=== PATIENT | female | born 1940 | race Two or more races ===

== ENCOUNTER 2022-10-29 13:41 | Inpatient (IN) | payer MEDICARE, OTHER ==
[~2022-10-29] VITALS: Ht 165.1 cm; Wt 60.8 kg
--- NOTE | 2022-10-29 14:09 | NUR ---
established iv line 20g at left ac
[2022-10-29] MEDS ORDERED: IV NS 0.9% 1,000 ML BAG IV ONE (14:30)
[2022-10-29] MEDS ORDERED: ACETAMINOPHEN ES 500 MG TABLET PO ONE (14:30)
[2022-10-29] MEDS ORDERED: CEFTRIAXONE 1GM BAG (ER ONLY) 50 ML IV ONE ×2 (14:30→14:34)
[2022-10-29] MEDS ORDERED: IV NS 0.9% 500 ML BAG IV ONE (14:30)
[2022-10-29] MEDS ORDERED: ONDANSETRON HCL/PF 4 MG/2 ML VIAL IVP ONE (14:30)
[2022-10-29] MEDS ORDERED: IBUPROFEN 600 MG TABLET PO ONE (14:30)
[2022-10-29] MEDS ORDERED: ONDANSETRON HCL/PF 4 MG/2 ML VIAL ONE (14:35)
[2022-10-29] MEDS ORDERED: IBUPROFEN 600 MG TABLET ONE (14:35)
[2022-10-29] MEDS ORDERED: ACETAMINOPHEN ES 500 MG TABLET ONE (14:35)
[2022-10-29 15:21] LABS: BASOPHILS % (AUTO) 0.3 % (0.0-2.0); EOSINOPHILS % (AUTO) 1.2 % (0.0-6.0); LYMPHOCYTES # (AUTO) 0.7 K/uL (0.8-4.8); LYMPHOCYTES % (AUTO) 5.8 % (20.0-44.0); MEAN CORPUSCULAR HGB CONC 32 g/dl (31.0-36.0); MEAN CORPUSCULAR VOLUME 97 fL (82-100); MONOCYTES % (AUTO) 8.1 % (2.0-12.0); NEUTROPHILS # (AUTO) 10.8 K/uL (1.8-8.9); NEUTROPHILS % (AUTO) 84.6 % (43.0-81.0); PLATELET COUNT (AUTO) 258 K/uL (150-450); RED BLOOD CELL COUNT(AUTO) 2.04 MIL/uL (4.0-5.2); WHITE BLOOD COUNT (AUTO) 12.7 K/uL (4.3-11.0)
[2022-10-29 15:51] LABS: HEMATOCRIT 20 % (33-45); HEMOGLOBIN 6.4 g/dL (11.5-14.8)
--- NOTE | 2022-10-29 15:52 | NUR ---
SODIUM 120, BUN 114, CREATININE 8.3. DOC MADE AWARE
--- NOTE | 2022-10-29 15:56 | NUR ---
HGB 6.4, HCT 20. DOC MADE AWARE
[2022-10-29 15:57] LABS: ALANINE AMINOTRANSFERASE 22 U/L (12-78); ALBUMIN 3.3 g/dL (3.4-5.0); ALKALINE PHOSPHATASE 77 U/L (46-116); ASPARTATE AMINOTRANSFERASE 26 U/L (15-37); BILIRUBIN,DIRECT 0.1 mg/dL (0.0-0.2); BILIRUBIN,TOTAL 0.4 mg/dL (0.2-1.0); CALCIUM, SERUM 7.8 mg/dL (8.5-10.1); CARBON DIOXIDE 12 mmol/L (21-32); CHLORIDE 89 mmol/L (98-107); GLUCOSE 116 mg/dL (74-106); POTASSIUM 5.1 mmol/L (3.5-5.1); TOTAL PROTEIN, SERUM 7.4 g/dL (6.4-8.2)
[2022-10-29 16:03] LABS: CREATININE 8.3 mg/dL (0.6-1.3); SODIUM SERUM 120 mmol/L (136-145); UREA NITROGEN, BLOOD 114 mg/dL (7-18)
--- NOTE | 2022-10-29 16:38 | NUR ---
influenza and covid swab taken
--- NOTE | 2022-10-29 16:46 | NUR ---
MOVE SHEET SUBMITTED
--- NOTE | 2022-10-29 17:08 | NUR ---
[facility] PAGED
--- NOTE | 2022-10-29 17:28 | NUR ---
lanier cath placed f16
[2022-10-29] MEDS ORDERED: MAGNESIUM HYDROXIDE 30 ML UDC PO PRN (17:30)
[2022-10-29] MEDS ORDERED: MORPHINE SULFATE INJ 2 MG/ML DISP.SYRIN IV PRN (17:30)
[2022-10-29] MEDS ORDERED: ONDANSETRON HCL/PF 4 MG/2 ML VIAL IVP PRN (17:30)
--- NOTE | 2022-10-29 17:51 | NUR ---
nursing evaporator supervisor called for tele med.
[2022-10-29 18:05] LABS: ACETAMINOPHEN 0 ug/ml (10-30)
[2022-10-29 18:39] LABS: BILIRUBIN,URINE NEGATIVE (NEGATIVE); COLOR,URINE DARK YELLOW (YELLOW); LEUKOCYTE ESTERASE ,URINE 3+ (NEGATIVE); NITRITE, URINE NEGATIVE (NEGATIVE); PH,URINE 6.5 (5.0-8.0); PROTEIN,URINE 2+ mg/dl (NEGATIVE); UGLUCOSE NEGATIVE (NEGATIVE); UROBILINOGEN,URINE 0.2 EU/dL (0.2)
[2022-10-29 18:58] LABS: BACTERIA,URINE Many /HPF (None Seen); RBC,URINE 51-80 /HPF (0-2); WBC,URINE 51-80 /HPF (0-3)
[2022-10-29 18:59] LABS: SQUAMOUS EPITHELIAL CELL,UR Few /HPF (None Seen)
[2022-10-29 19:03] LABS: LYMPHOCYTES % (MANUAL) 9 % (16-48); MONOCYTES % (MANUAL) 4 % (0-11.0); NEUTROPHILS % (MANUAL) 87 (42-76)
--- NOTE | 2022-10-29 19:55 | NUR ---
MIKE VILLASENOR ANN: [phone]
[2022-10-29 19:58] LABS: CREATINE KINASE, TOTAL 199 U/L (26-192)
--- NOTE | 2022-10-29 20:00 | NUR ---
RECEIVED PT IN ER ROOM 6. PT IS ALERT AND ORIENTED. RR EVEN AND NONLABORED. IV NOTED ON LAC20G, PATENT AND INTACT. MCDONALD INPLACE. CONNECTED TO POX AND HEART MONITOR. FOOD AND DRINK PROVIDED. DENIES ANY DISCOMFORT. ALL NEEDS ARE MET AT THIS TIME. WILL CONTINUE TO MONITOR
[2022-10-29 20:23] LABS: ALANINE AMINOTRANSFERASE 22 U/L (12-78); ALBUMIN 3.1 g/dL (3.4-5.0); ALKALINE PHOSPHATASE 73 U/L (46-116); ASPARTATE AMINOTRANSFERASE 26 U/L (15-37); BILIRUBIN,TOTAL 0.4 mg/dL (0.2-1.0); CALCIUM, SERUM 7.8 mg/dL (8.5-10.1); CARBON DIOXIDE 13 mmol/L (21-32); CHLORIDE 89 mmol/L (98-107); GLUCOSE 114 mg/dL (74-106); POTASSIUM 5.3 mmol/L (3.5-5.1); TOTAL PROTEIN, SERUM 6.9 g/dL (6.4-8.2)
[2022-10-29 20:27] LABS: SODIUM SERUM 120 mmol/L (136-145); UREA NITROGEN, BLOOD 115 mg/dL (7-18)
[2022-10-29 20:28] LABS: CREATININE 8.5 mg/dL (0.6-1.3)
--- NOTE | 2022-10-29 20:59 | NUR ---
SPOKE TO DR KING OVER THE PHONE AND RELAYED THE OUTPUT. WITH NEW ORDERS FOR RENAL AND BLADDER US AND IV NS AT 75/HR. NEW ORDERS NOTED.
[2022-10-29] MEDS ORDERED: IV NS 0.9% 1,000 ML IV PRN (21:00)
[2022-10-29] MEDS ORDERED: SODIUM POLYSTYRENE SULF. PWD 15 GM UDC PO ONE (21:00)
[2022-10-29 22:30] LABS: CREATININE, URINE 35.4 MG/DL (30.0-125.0)
--- NOTE | 2022-10-29 23:10 | NUR ---
RN NOTES RECEIVED ER ADMISSION REPORT FROM RALPH VÁSQUEZ. ALL PERTINENT ADMISSION INFO REGARDING PT NOTED. WILL WAIT FOR PT TO BE TRANSFERRED TO UNIT AND ADDRESS NEEDS ACCORDINGLY. DIRECTOR VETERINARY MADE AWARE.
--- NOTE | 2022-10-29 23:11 | NUR ---
REPORT GIVEN TO ANNIE ROSAS FOR JEANETH
--- NOTE | 2022-10-29 23:25 | NUR ---
RN NOTES RECEIVED PT FROM ER VIA GURNEY ACCOMPANIED BY 2 ER STAFF AND TRANSFERRED TO BED VIA 2-3 PERSON ASSIST. PT IS A/OX4ON ROOM AIR WITH RESPIRATIONS EVEN AND UNLABORED. COMPREHENSIVE PHYSICAL ASSESSMENT AND PATIENT CARE DONE. CALL LIGHT WITHIN REACH, SAFETY MEASURES. WILL CONTINUE MONITOR AND ASSESS THROUGHOUT THE SHIFT. WILL CARRY OUT MD ORDERS ACCORDINGLY. ALLIED HEALTH PROFESSIONAL MADE AWARE.
[2022-10-29] MEDS ORDERED: POLYETHYLENE GLYCOL 3350 17 GM POWD.PACK ONE (23:41)
[2022-10-29 23:56] VITALS: BP 109/50
[2022-10-30] VITALS (11 sets, daily range): BP systolic 109–133; BP diastolic 50–67
[2022-10-30] MEDS ORDERED: SODIUM POLYSTYRENE SULFONATE 15 G/60 ML BOTTLE ONE (00:17)
[2022-10-30 00:21] LABS: HEMOGLOBIN 6.4 g/dL (11.5-14.8)
--- NOTE | 2022-10-30 00:22 | NUR ---
RN NOTES Sodium polystyrene powder not available in [employer]; supervisor poultry hatchery night locker with suspension ; supervisor poultry hatchery asked for order to be changed to suspension.
[2022-10-30] MEDS ORDERED: SODIUM POLYSTYRENE SULFONATE 15 G/60 ML BOTTLE PO ONE (00:30)
--- NOTE | 2022-10-30 00:30 | NUR ---
RN NOTES NOTIFIED ONCPRABHU NAVAS (OPAL,DEPUTY SHERIFF LIEUTENANT) REGARDING PT'S CODE STATUS VERIFIED FROM PT THAT SHE WANTS (DNR/DNI) ALSO POER DR. SOTELO'S NOTE WHO SPOKE WITH PT; PT IS DNR/DNU. NO POLST. OPAL SAID IT OK TO PLACE AND ORDER CODE STATUS FOR DNR/DNI. ROTARY SLICING MACHINE OPERATOR WELL AWARE.
--- NOTE | 2022-10-30 01:15 | NUR ---
RALPH NOTES STARTED 1 BAG OF PRBC ORDERED. INITIAL VITAL SIGNS TAKEN AND NOTED TO BE WNL. INFUSED PER PROTOCOL. WILL CONTINUE TO MONITOR AND ASSESS FOR ANY BLOOD TRANSFUSION REACTION AND ADDRESS ACCORDINGLY. ROSIE ROSAS WELL AWARE. Addendum: 10/30/22 at 0425 by MERCED OWENS RN ENDED BLOOD TRANSFUSION @0420, VITAL SIGNS REMAINED WNL, NO BLOOD TRANSFUSION REACTION NOTED. WILL CONTINUE TO MONITOR AND ASSESS FOR ANY BLOOD TRANSFUSION REACTION POST PROCEDURE. ROSIE ROSAS MADE AWARE.
--- NOTE | 2022-10-30 06:49 | NUR ---
RN NOTES RECEIVED PT FOR CONTINUITY OF CARE. PATIENT A/OX4 IN NO S/SX OF ACUTE DISTRESS AT THIS TIME; CURRENTLY ROOM AIR; WITH 02 SAT >95% AT THIS TIME.WITH IV ACCESS PATENT, INTACT AND FLUSHING WELL. WITH RUNNING NS@75CC/HRW. S/P BLOOD TRANSFUSION OF 1 U PRBC. WILL ENSURE SAFETY MEASURES WITHIN THE SHIFT. PATIENT BED ALARM IS ON. HEAD OF BED ELEVATED. BED IS LOCKED, IN LOWEST POSITION AND SIDE RAILS UP. CALL LIGHT WITHIN REACH OF THE PATIENT. WILL CONTINUE TO MONITOR AND REASSESS FOR ANY CHANGES AND WILL CARRY OUT ANY ONGOING AND ACTIVE MD ORDER. Addendum: 10/30/22 at 0652 by MERCED OWENS RN RN CLOSING NOTE: PATIENT REMAINS IN ROOM IN NO SIGNS OF RESPIRATORY DISTRESS, PATIENT STILL ON ROOM AIR;TOLERATING WELL SATURATING @ >95% SP02. S/P BLOOD TRANSFUSION OF 1 U PRBC. SAFETY MEASURES IMPLEMENTED, BED IN LOWEST POSITION, LOCKED, SIDE RAILS UP, CALL LIGHT WITHIN REACH. ALL NEEDS AND ORDERS ADDRESSED DURING THE SHIFT. IV ACCESS MAINTAINED INTACT, SECURED AND FLUSHING WELL. IV FLUIDS RUNNING PRESCRIBED. ALL DUE MEDS GIVEN ORDERED & SCHEDULED ; PATIENT TOLERATED WELL. PATIENT KEPT CLEAN AND COMFORTABLE WITHIN THE SHIFT. PATIENT ENDORSED TO INCOMING SHIFT RN WITH STABLE VITAL SIGN AND FOR CONTINUITY OF CARE.
[2022-10-30 08:00] LABS: BASOPHILS % (AUTO) 0.1 % (0.0-2.0); EOSINOPHILS % (AUTO) 0.1 % (0.0-6.0); HEMATOCRIT 26 % (33-45); HEMOGLOBIN 8.5 g/dL (11.5-14.8); LYMPHOCYTES # (AUTO) 0.6 K/uL (0.8-4.8); LYMPHOCYTES % (AUTO) 4.1 % (20.0-44.0); MEAN CORPUSCULAR HGB CONC 33 g/dl (31.0-36.0); MEAN CORPUSCULAR VOLUME 96 fL (82-100); MONOCYTES # (AUTO) 0.9 K/uL (0.1-1.30); MONOCYTES % (AUTO) 6.1 % (2.0-12.0); NEUTROPHILS # (AUTO) 13.6 K/uL (1.8-8.9); NEUTROPHILS % (AUTO) 89.6 % (43.0-81.0); PLATELET COUNT (AUTO) 271 K/uL (150-450); RED BLOOD CELL COUNT(AUTO) 2.68 MIL/uL (4.0-5.2); WHITE BLOOD COUNT (AUTO) 15.2 K/uL (4.3-11.0)
[2022-10-30 08:16] LABS: ALANINE AMINOTRANSFERASE 19 U/L (12-78); ALBUMIN 2.8 g/dL (3.4-5.0); ALKALINE PHOSPHATASE 76 U/L (46-116); ASPARTATE AMINOTRANSFERASE 27 U/L (15-37); BILIRUBIN,TOTAL 0.4 mg/dL (0.2-1.0); CALCIUM, SERUM 7.6 mg/dL (8.5-10.1); CARBON DIOXIDE 13 mmol/L (21-32); CHLORIDE 96 mmol/L (98-107); GLUCOSE 123 mg/dL (74-106); MAGNESIUM 2.9 mg/dL (1.8-2.4); PHOSPHORUS 7.9 mg/dL (2.5-4.9); POTASSIUM 4.9 mmol/L (3.5-5.1); SODIUM SERUM 126 mmol/L (136-145); TOTAL PROTEIN, SERUM 6.8 g/dL (6.4-8.2)
[2022-10-30 08:22] LABS: CREATININE 7.7 mg/dL (0.6-1.3); UREA NITROGEN, BLOOD 115 mg/dL (7-18)
[2022-10-30] MEDS: DOCUSATE SODIUM LIQ 100 MG/10 ML UDC PO SCH ×2 (09:12→16:55)
[2022-10-30] MEDS: POLYETHYLENE GLYCOL 3350 17 GM POWD.PACK PO SCH ×2 (09:13→16:55)
[2022-10-30] MEDS ORDERED: LABE300T2 PO (10:31)
[2022-10-30] MEDS ORDERED: ASPI-1498 PO (10:31)
[2022-10-30] MEDS ORDERED: ATOR10TA PO (10:31)
[2022-10-30] MEDS ORDERED: LOSA1TAB39 PO (10:31)
[2022-10-30] MEDS ORDERED: AMLO-212 PO (10:31)
[2022-10-30] MEDS ORDERED: OXYC5TAB3 PO (10:31)
[2022-10-30] MEDS ORDERED: SULF1TAB48 PO (10:32)
[2022-10-30] MEDS: CEFTRIAXONE 1 G in IV D5W 50 ML IV SCH (13:20)
[2022-10-30 16:23] LABS: HEMOGLOBIN 8.2 g/dL (11.5-14.8)
--- NOTE | 2022-10-30 16:32 | NUR ---
NEW ORDER PER DR. KING FOR ULTRA SOUND TO KIDNEY AND BLADDER. JOSETTE Zayas RN
--- NOTE | 2022-10-30 19:30 | NUR ---
RN OPENING NOTE RECEIVED PT IN BED, AWAKE, A/O X 2-3 ABLE TO VERBALIZE NEEDS. CURRENTLY ON RA, TOLERATING WELL WITH O2 SAT @ 99%. TELE MONITOR READS SR WITH HR IN THE 70s. NO S/SX OF ACUTE RESPI DISTRESS NOTED AT THIS TIME. NO SOB, NO PAIN. IV ACCESS NOTED ON LAC #20g PATENT AND INTACT, RUNNING NS @ 125 CC/HR. MCDONALD CATH IN PLACE, DRAINING URINE BY GRAVITY. ALL SAFETY MEASURES IN PLACE: BED LOCKED IN LOW POSITION, BED ALARM ON. SR UP X 3. CALL LIGHT WITHIN REACH. WILL CONTINUE TO MONITOR.
[2022-10-31] VITALS: BP 110/80
[2022-10-31 01:07] LABS: HEMOGLOBIN 8.2 g/dL (11.5-14.8)
[2022-10-31 04:00] VITALS: BP 127/46
--- NOTE | 2022-10-31 05:42 | NUR ---
RN NOTE DISCUSSED WITH PT HER CODE STATUS SINCE NO POLST IS IN THE CHART. SHE SAID SHE STILL WANTS TO BE REVIVED IN THE EVENT SHE LOSES HEARTBEAT/PULSE. UPDATED HER CODE STATUS TO FULL CODE.
--- NOTE | 2022-10-31 06:05 | NUR ---
RN NOTE PT REMAINED STABLE T/O THE NIGHT. ALL NEEDS ATTENDED TO. PM CARE DONE. TURNED AND REPOSITIONED. WILL ENDORSE TO AM SHIFT NURSE FOR JEANETH.
[2022-10-31 08:08] LABS: ALANINE AMINOTRANSFERASE 24 U/L (12-78); ALBUMIN 2.7 g/dL (3.4-5.0); ALKALINE PHOSPHATASE 74 U/L (46-116); ASPARTATE AMINOTRANSFERASE 28 U/L (15-37); BILIRUBIN,TOTAL 0.3 mg/dL (0.2-1.0); CARBON DIOXIDE 13 mmol/L (21-32); CHLORIDE 107 mmol/L (98-107); CREATININE 6.2 mg/dL (0.6-1.3); GLUCOSE 103 mg/dL (74-106); POTASSIUM 3.6 mmol/L (3.5-5.1); SODIUM SERUM 138 mmol/L (136-145); TOTAL PROTEIN, SERUM 6.6 g/dL (6.4-8.2)
[2022-10-31 08:10] LABS: BASOPHILS % (AUTO) 0.2 % (0.0-2.0); EOSINOPHILS % (AUTO) 1.2 % (0.0-6.0); HEMATOCRIT 25 % (33-45); HEMOGLOBIN 8.2 g/dL (11.5-14.8); LYMPHOCYTES # (AUTO) 0.9 K/uL (0.8-4.8); LYMPHOCYTES % (AUTO) 5.6 % (20.0-44.0); MEAN CORPUSCULAR HGB CONC 33 g/dl (31.0-36.0); MEAN CORPUSCULAR VOLUME 95 fL (82-100); MONOCYTES # (AUTO) 1.5 K/uL (0.1-1.30); MONOCYTES % (AUTO) 9.1 % (2.0-12.0); NEUTROPHILS # (AUTO) 14.2 K/uL (1.8-8.9); NEUTROPHILS % (AUTO) 83.9 % (43.0-81.0); PLATELET COUNT (AUTO) 313 K/uL (150-450); RED BLOOD CELL COUNT(AUTO) 2.62 MIL/uL (4.0-5.2)
[2022-10-31 08:13] LABS: UREA NITROGEN, BLOOD 100 mg/dL (7-18)
[2022-10-31] MEDS ORDERED: ATORVASTATIN 10 MG TABLET PO SCH (09:00)
[2022-10-31 09:13] LABS: FERRITIN 587 ng/mL (8-388)
[2022-10-31] MEDS: POLYETHYLENE GLYCOL 3350 17 GM POWD.PACK PO SCH (09:19)
[2022-10-31] MEDS: DOCUSATE SODIUM LIQ 100 MG/10 ML UDC PO SCH ×2 (09:19→17:11)
[2022-10-31] MEDS: ASPIRIN EC 81 MG TABLET.DR PO SCH (09:19)
[2022-10-31] MEDS: LOSARTAN POTASSIUM 50 MG TABLET PO SCH ×2 (09:20→17:12)
[2022-10-31] MEDS: LABETALOL HCL (100MG) 100 MG TABLET PO SCH (09:21)
[2022-10-31] MEDS: AMLODIPINE BESYLATE 5 MG TABLET PO SCH (09:22)
[2022-10-31 09:52] LABS: IRON, SERUM 64 ug/dl (50-175); TOTAL IRON BINDING CAPACITY 164 ug/dl (250-450)
[2022-10-31 10:00] VITALS: BP 135/75
[2022-10-31 12:00] VITALS: BP 118/50
[2022-10-31] MEDS: CEFTRIAXONE 1 G in IV D5W 50 ML IV SCH (14:38)
[2022-10-31 16:00] VITALS: BP 126/57
--- NOTE | 2022-10-31 19:30 | NUR ---
RN OPENING NOTE RECEIVED PT IN BED, AWAKE, A/O X 4, ABLE TO VERBALIZE NEEDS. CURRENTLY ON RA, TOLERATING WELL WITH O2 SAT @ 100%. TELE MONITOR READS SR WITH HR IN THE 70s. NO S/SX OF ACUTE RESPI DISTRESS NOTED AT THIS TIME. NO SOB, NO PAIN. IV ACCESS NOTED ON LAC #20g PATENT AND INTACT, RUNNING NS @ 125 CC/HR. MCDONALD CATH IN PLACE, DRAINING URINE BY GRAVITY. ALL SAFETY MEASURES IN PLACE: BED LOCKED IN LOW POSITION, BED ALARM ON. SR UP X 3. CALL LIGHT WITHIN REACH. WILL CONTINUE TO MONITOR.
[2022-10-31] MEDS: IV NS 0.9% 1,000 ML IV PRN (19:58)
[2022-10-31 20:00] VITALS: BP 146/62
--- NOTE | 2022-10-31 20:46 | NUR ---
RN NOTE CONSENT SIGNED FOR BILATERAL NEPHROSTOMY TUBE PLACEMENT TOMORROW. CONSENT IN PT'S CHART.
[2022-11-01] VITALS: BP 163/71
[2022-11-01 00:02] LABS: HEMOGLOBIN 8.6 g/dL (11.5-14.8)
[2022-11-01 04:00] VITALS: BP 163/72
[2022-11-01] MEDS: IV NS 0.9% 1,000 ML IV PRN ×2 (04:25→17:39)
[2022-11-01] MEDS: hydrALAZINE HCL IV 20 MG VIAL IV PRN (05:50)
--- NOTE | 2022-11-01 06:00 | NUR ---
RN NOTE HYDRALAZINE GIVEN VIA IV, PT SBP >160. NO OTHER S/SX OF DISTRESS NOTED. PT REMAINED STABLE T/O THE NIGHT. ALL NEEDS ATTENDED TO. PT IS CURRENTLY NPO, FOR NEPHROSTOMY TUBE PLACEMENT LATER. WILL ENDORSE TO AM SHIFT NURSE FOR JEANETH.
--- NOTE | 2022-11-01 06:05 | NUR ---
RN NOTE NO SIGNIFICANT CHANGE T/O THE NIGHT. SR ON TELE MONITOR. ALL NEEDS ATTENDED TO. TURNED AND REPOSITIONED. WILL ENDORSE TO AM SHIFT NURSE FOR JEANETH.
--- NOTE | 2022-11-01 07:15 | NUR ---
RN OPENING NOTE RECEIVED PT IN BED, AWAKE, A/O X 4, ABLE TO VERBALIZE NEEDS. CURRENTLY ON RA, TOLERATING WELL TELE MONITOR READS SR . NO S/SX OF ACUTE RESPI DISTRESS NOTED AT THIS TIME. NO SOB, NO PAIN. IV ACCESS NOTED ON LAC #20g PATENT AND INTACT, RUNNING NS @ 125 CC/HR. MCDONALD CATH IN PLACE, DRAINING URINE BY GRAVITY. ALL SAFETY MEASURES IN PLACE: BED LOCKED IN LOW POSITION, BED ALARM ON. SR UP X 3. CALL LIGHT WITHIN REACH.
[2022-11-01 07:30] LABS: HEMOGLOBIN 8.8 g/dL (11.5-14.8)
[2022-11-01 07:32] LABS: BASOPHILS # (AUTO) 0.1 K/uL (0.0-0.2); BASOPHILS % (AUTO) 0.3 % (0.0-2.0); EOSINOPHILS % (AUTO) 1.7 % (0.0-6.0); HEMATOCRIT 26 % (33-45); HEMOGLOBIN 8.7 g/dL (11.5-14.8); LYMPHOCYTES # (AUTO) 1.3 K/uL (0.8-4.8); LYMPHOCYTES % (AUTO) 6.9 % (20.0-44.0); MEAN CORPUSCULAR HGB CONC 33 g/dl (31.0-36.0); MEAN CORPUSCULAR VOLUME 95 fL (82-100); MONOCYTES # (AUTO) 1.6 K/uL (0.1-1.30); MONOCYTES % (AUTO) 8.1 % (2.0-12.0); NEUTROPHILS # (AUTO) 16.1 K/uL (1.8-8.9); PLATELET COUNT (AUTO) 357 K/uL (150-450); RED BLOOD CELL COUNT(AUTO) 2.77 MIL/uL (4.0-5.2); WHITE BLOOD COUNT (AUTO) 19.4 K/uL (4.3-11.0)
[2022-11-01 07:47] LABS: ALANINE AMINOTRANSFERASE 30 U/L (12-78); ALKALINE PHOSPHATASE 78 U/L (46-116); ASPARTATE AMINOTRANSFERASE 32 U/L (15-37); BILIRUBIN,TOTAL 0.3 mg/dL (0.2-1.0); CALCIUM, SERUM 7.5 mg/dL (8.5-10.1); CARBON DIOXIDE 15 mmol/L (21-32); CHLORIDE 110 mmol/L (98-107); CREATININE 4.6 mg/dL (0.6-1.3); GLUCOSE 119 mg/dL (74-106); POTASSIUM 3.5 mmol/L (3.5-5.1); SODIUM SERUM 142 mmol/L (136-145); TOTAL PROTEIN, SERUM 7.1 g/dL (6.4-8.2); UREA NITROGEN, BLOOD 76 mg/dL (7-18)
[2022-11-01 08:00] VITALS: BP 160/73
[2022-11-01] MEDS: LOSARTAN POTASSIUM 50 MG TABLET PO SCH ×2 (08:33→16:26)
[2022-11-01] MEDS: LABETALOL HCL (100MG) 100 MG TABLET PO SCH (08:33)
[2022-11-01] MEDS: DOCUSATE SODIUM LIQ 100 MG/10 ML UDC PO SCH ×2 (08:33→16:26)
[2022-11-01] MEDS: AMLODIPINE BESYLATE 5 MG TABLET PO SCH (08:33)
[2022-11-01] MEDS: ASPIRIN EC 81 MG TABLET.DR PO SCH (08:33)
[2022-11-01] MEDS ORDERED: LIDOCAINE 1% INJ 50 ML MDV IJ ONE (09:38)
--- NOTE | 2022-11-01 10:00 | NUR ---
RN NOTE PATIENT WAS TAKEN TO CT FOR BILATERAL NEPHROSTOMY PLACEMENT.
[2022-11-01] MEDS ORDERED: FENTANYL PF 250MCG/5ML AMPUL IV PRN (10:30)
[2022-11-01] MEDS ORDERED: FLUMAZENIL 0.5 MG VIAL IV PRN (10:30)
[2022-11-01] MEDS ORDERED: MIDAZOLAM HCL 2 MG/2ML VIAL IV PRN (10:30)
[2022-11-01] MEDS ORDERED: NALOXONE PREFILLED SYRINGE 2 MG/2 ML SYRINGE IV PRN (10:30)
[2022-11-01] MEDS: CEFTRIAXONE 1 G in IV D5W 50 ML IV SCH (14:19)
[2022-11-01 16:00] VITALS: BP 158/70
[2022-11-01 16:03] LABS: HEMOGLOBIN 8.5 g/dL (11.5-14.8)
--- NOTE | 2022-11-01 18:39 | NUR ---
RN CLOSING NOTE RECEIVED PT IN BED, AWAKE, A/O X 4, ABLE TO VERBALIZE NEEDS. CURRENTLY ON RA, TOLERATING WELL TELE MONITOR READS SR . NO S/SX OF ACUTE RESPI DISTRESS NOTED AT THIS TIME. NO SOB, NO PAIN. IV ACCESS NOTED ON LAC #20g PATENT AND INTACT. BILATERAL NEPHROSTOMY IN PLACE., DRAINING URINE BY GRAVITY. ALL SAFETY MEASURES IN PLACE: BED LOCKED IN LOW POSITION, BED ALARM ON. SR UP X 3. CALL LIGHT WITHIN REACH.
--- NOTE | 2022-11-01 19:24 | NUR ---
RN OPENING NOTES; RECEIVED PT IN BED, AWAKE, A/O X 4, ABLE TO VERBALIZE NEEDS. CURRENTLY ON RA, TOLERATING WELL ,NO SIGN SOB/DISTRESS NOTED.NO PAIN/DISCOMFORT AT THIS TIME,IV ACCESS ON LAC #20g ONGOING NS @125ML/HR GARY WELL,. BILATERAL NEPHROSTOMY IN PLACE., DRAINING SMALL AMOUNT OF BLOOD IN THE URINE NOTED. ALL SAFETY MEASURES IN PLACE: BED LOCKED IN LOW POSITION, BED ALARM ON. SR UP X 3. CALL LIGHT WITHIN REACH.WILL CONTINUE TO MONITOR.
[2022-11-01 20:00] VITALS: BP 151/78
[2022-11-01] MEDS: ATORVASTATIN 10 MG TABLET PO SCH (21:09)
[2022-11-01] MEDS: ACETAMINOPHEN 325 MG TABLET PO PRN (21:19)
--- NOTE | 2022-11-01 23:30 | NUR ---
RN NOTES; PT REFUSED A BLOOD DRAW,PT SAID TOMORROW MORNING BEFORE BREAKFAST.
[2022-11-02] VITALS (7 sets, daily range): BP systolic 125–172; BP diastolic 52–75
[2022-11-02] MEDS: ACETAMINOPHEN 325 MG TABLET PO PRN (03:53)
[2022-11-02] MEDS: hydrALAZINE HCL IV 20 MG VIAL IV PRN ×2 (04:07→08:12)
[2022-11-02 06:27] LABS: BASOPHILS % (AUTO) 0.1 % (0.0-2.0); EOSINOPHILS % (AUTO) 0.2 % (0.0-6.0); HEMATOCRIT 24 % (33-45); HEMOGLOBIN 7.7 g/dL (11.5-14.8); LYMPHOCYTES # (AUTO) 1.1 K/uL (0.8-4.8); LYMPHOCYTES % (AUTO) 4.5 % (20.0-44.0); MEAN CORPUSCULAR HGB CONC 32 g/dl (31.0-36.0); MEAN CORPUSCULAR VOLUME 97 fL (82-100); MONOCYTES # (AUTO) 1.8 K/uL (0.1-1.30); MONOCYTES % (AUTO) 7.6 % (2.0-12.0); NEUTROPHILS # (AUTO) 20.7 K/uL (1.8-8.9); NEUTROPHILS % (AUTO) 87.6 % (43.0-81.0); PLATELET COUNT (AUTO) 296 K/uL (150-450); WHITE BLOOD COUNT (AUTO) 23.6 K/uL (4.3-11.0)
[2022-11-02 06:31] LABS: ALANINE AMINOTRANSFERASE 29 U/L (12-78); ALBUMIN 2.9 g/dL (3.4-5.0); ALKALINE PHOSPHATASE 72 U/L (46-116); ASPARTATE AMINOTRANSFERASE 28 U/L (15-37); BILIRUBIN,TOTAL 0.4 mg/dL (0.2-1.0); CALCIUM, SERUM 7.8 mg/dL (8.5-10.1); CARBON DIOXIDE 15 mmol/L (21-32); CHLORIDE 109 mmol/L (98-107); CREATININE 3.6 mg/dL (0.6-1.3); GLUCOSE 139 mg/dL (74-106); POTASSIUM 3.4 mmol/L (3.5-5.1); SODIUM SERUM 141 mmol/L (136-145); TOTAL PROTEIN, SERUM 6.9 g/dL (6.4-8.2); UREA NITROGEN, BLOOD 59 mg/dL (7-18)
--- NOTE | 2022-11-02 06:38 | NUR ---
RN CLOSING NOTES; PATIENT IN BED, AWAKE, A/O X 4, ABLE TO VERBALIZE NEEDS. CURRENTLY ON RA, TOLERATING WELL ,NO SIGN SOB/DISTRESS NOTED.NO PAIN/DISCOMFORT DURING SHIFT,IV ACCESS ON LAC #20g ONGOING NS @125ML/HR GARY WELL,.DUE MEDS GIVEN ORDER,ALL NEEDS ATTENDED, BILATERAL NEPHROSTOMY IN PLACE.DRAINING SMALL AMOUNT OF BLOOD IN THE URINE NOTED,RT NEPHRO OUTPUT 450ML AND LT NEPHRO 250ML.FC DRAINING BLOOD THIN URINE OUT PUT 900ML. ALL SAFETY MEASURES IN PLACE: BED LOCKED IN LOW POSITION, BED ALARM ON. SR UP X 3. CALL LIGHT WITHIN REACH.WILL ENDORSE TO NEXT SHIFT.
--- NOTE | 2022-11-02 07:13 | NUR ---
RN OPENING NOTES; RECEIVED PT IN BED, AWAKE, A/O X 4, ABLE TO VERBALIZE NEEDS. CURRENTLY ON RA, TOLERATING WELL ,NO SIGN SOB/DISTRESS NOTED.NO PAIN/DISCOMFORT AT THIS TIME,IV ACCESS ON LAC #20g ONGOING NS @125ML/HR TOLERATING WELL,. BILATERAL NEPHROSTOMY IN PLACE., DRAINING SMALL AMOUNT OF BLOOD IN THE URINE NOTED. ALL SAFETY MEASURES IN PLACE: BED LOCKED IN LOW POSITION, BED ALARM ON. SR UP X 3. CALL LIGHT WITHIN REACH.WILL CONTINUE TO MONITOR.
[2022-11-02 08:07] LABS: HEMOGLOBIN 8.2 g/dL (11.5-14.8)
[2022-11-02] MEDS: POLYETHYLENE GLYCOL 3350 17 GM POWD.PACK PO SCH (08:10)
[2022-11-02] MEDS: DOCUSATE SODIUM LIQ 100 MG/10 ML UDC PO SCH ×2 (08:11→16:49)
[2022-11-02] MEDS: LOSARTAN POTASSIUM 50 MG TABLET PO SCH ×2 (08:11→16:49)
[2022-11-02] MEDS: ASPIRIN EC 81 MG TABLET.DR PO SCH (08:11)
[2022-11-02] MEDS: LABETALOL HCL (100MG) 100 MG TABLET PO SCH (08:11)
[2022-11-02] MEDS: AMLODIPINE BESYLATE 5 MG TABLET PO SCH (08:12)
--- NOTE | 2022-11-02 10:00 | NUR ---
RN NOTE PATIENT NOTED TO HAVE BLOODY OUTPUT FROM NEPHROSTOMY AND MCDONALD NOTIFIED ZARA TEJEDA DNP. NOT ORDERS GIVEN
[2022-11-02] MEDS: CEFTRIAXONE 1 G in IV D5W 50 ML IV SCH (14:13)
[2022-11-02 15:56] LABS: HEMOGLOBIN 7.4 g/dL (11.5-14.8)
[2022-11-02] MEDS: IV NS 0.9% 1,000 ML IV PRN (18:01)
--- NOTE | 2022-11-02 18:28 | NUR ---
RN CLOSING NOTES; PATIENT IN BED, AWAKE, A/O X 4, ABLE TO VERBALIZE NEEDS. CURRENTLY ON RA, TOLERATING WELL ,NO SIGN SOB/DISTRESS NOTED.NO PAIN/DISCOMFORT DURING SHIFT,IV ACCESS ON LAC #20g ONGOING NS @125ML/HR GARY WELL,.DUE MEDS GIVEN ORDER,ALL NEEDS ATTENDED, BILATERAL NEPHROSTOMY IN PLACE.DRAINING BLOOD OUTPUT IN THE URINE NOTED,.FC DRAINING BLOOD THIN URINE. ALL SAFETY MEASURES IN PLACE: BED LOCKED IN LOW POSITION, BED ALARM ON. SR UP X 3. CALL LIGHT WITHIN REACH.WILL ENDORSE TO NEXT SHIFT.
--- NOTE | 2022-11-02 20:00 | NUR ---
FINANCIAL REPORTING DIRECTOR OPENING NOTES; RECEIVED PT IN BED, AWAKE, A/O X 4, ABLE TO VERBALIZE NEEDS. V/S STABLE AFEBRILE DUE MEDS GIVEN ORDERED. NO ASE NOTED. CURRENTLY ON RA,SATING 97% TOLERATING WELL ,NO SIGN SOB/DISTRESS NOTED.NO PAIN/DISCOMFORT AT THIS TIME,IV ACCESS ON LAC #20g ONGOING NS @125ML/HR TOLERATING WELL,. BILATERAL NEPHROSTOMY IN PLACE., DRAINING MODERATE AMOUNT OF BLOODY DRAINAGE , ALSO NOTED WITH HEMATURIA NOTED . ALL SAFETY MEASURES IN PLACE: BED LOCKED IN LOW POSITION, BED ALARM ON. SR UP X 3. CALL LIGHT WITHIN REACH.WILL CONTINUE TO MONITOR.
[2022-11-02] MEDS: ATORVASTATIN 10 MG TABLET PO SCH (21:48)
[2022-11-02 23:44] LABS: HEMOGLOBIN 7.4 g/dL (11.5-14.8)
[2022-11-03] VITALS (14 sets, daily range): BP systolic 91–144; BP diastolic 45–76
[2022-11-03] MEDS: IV NS 0.9% 1,000 ML IV PRN ×2 (03:10→11:06)
--- NOTE | 2022-11-03 06:25 | NUR ---
HAND INSPECTOR CLOSING NOTES; PATIENT IN BED, AWAKE, A/O X 4, ON R/A, SATING 97%,NO SIGN SOB/DISTRESS NOTED.NO PAIN/DISCOMFORT DURING SHIFT,IV ACCESS ON LAC #20g ONGOING NS @125ML/HR GARY WELL,.ALL NEEDS ATTENDED, BILATERAL NEPHROSTOMY IN PLACE.DRAINING BLOOD OUTPUT IN THE URINE NOTED, HEMATURIA STILL NOTED. ALL SAFETY MEASURES IN PLACE: BED LOCKED IN LOW POSITION, BED ALARM ON. SR UP X 3. CALL LIGHT WITHIN REACH.WILL ENDORSE TO NEXT SHIFT.
[2022-11-03 06:41] LABS: ALANINE AMINOTRANSFERASE 27 U/L (12-78); ALBUMIN 2.7 g/dL (3.4-5.0); ALKALINE PHOSPHATASE 73 U/L (46-116); ASPARTATE AMINOTRANSFERASE 24 U/L (15-37); BILIRUBIN,TOTAL 0.4 mg/dL (0.2-1.0); CALCIUM, SERUM 7.9 mg/dL (8.5-10.1); CARBON DIOXIDE 18 mmol/L (21-32); CHLORIDE 105 mmol/L (98-107); CREATININE 2.7 mg/dL (0.6-1.3); GLUCOSE 135 mg/dL (74-106); POTASSIUM 3.3 mmol/L (3.5-5.1); SODIUM SERUM 137 mmol/L (136-145); UREA NITROGEN, BLOOD 44 mg/dL (7-18)
--- NOTE | 2022-11-03 07:15 | NUR ---
NECKTIE MAKER OPENING NOTES: RECEIVED PATIENT IN BED, AWAKE, ALERT, ORIENTED X 4. NO RESPIRATORY DISTRESS NOTED, BREATHING EVEN AND UNLABORED. ON RA WITH OXYGEN SATURATION OF 99%. ON ST WITH HR OF 105 ON TELE MONITOR. IV SITE ON LEFT ANTECUBITAL AREA INTACT RUNNING WITH NS @ 125 ML/HR, IV SITE PATENT, NO S/S INFILTRATION NOTED. BILATERAL NEPHROSTOMY INTACT, DRAINING WITH LIGHT REDDISH COLORED URINE. F/C IN PLACE. ALL SAFETY MEASURES IN PLACE. BED LOCKED AND IN LOWEST POSITION WITH BED ALARM ON. CALL LIGHT WITHIN REACH. WILL CONTINUE TO MONITOR PATIENT THROUGHOUT SHIFT.
[2022-11-03 07:30] LABS: BASOPHILS % (AUTO) 0.2 % (0.0-2.0); EOSINOPHILS % (AUTO) 0.7 % (0.0-6.0); HEMATOCRIT 25 % (33-45); HEMOGLOBIN 7.9 g/dL (11.5-14.8); LYMPHOCYTES # (AUTO) 1.5 K/uL (0.8-4.8); LYMPHOCYTES % (AUTO) 5.7 % (20.0-44.0); MEAN CORPUSCULAR HGB CONC 32 g/dl (31.0-36.0); MEAN CORPUSCULAR VOLUME 96 fL (82-100); MONOCYTES # (AUTO) 1.9 K/uL (0.1-1.30); MONOCYTES % (AUTO) 7.4 % (2.0-12.0); NEUTROPHILS # (AUTO) 22.3 K/uL (1.8-8.9); PLATELET COUNT (AUTO) 301 K/uL (150-450); RED BLOOD CELL COUNT(AUTO) 2.57 MIL/uL (4.0-5.2); WHITE BLOOD COUNT (AUTO) 25.9 K/uL (4.3-11.0)
[2022-11-03 07:58] LABS: HEMOGLOBIN 7.1 g/dL (11.5-14.8)
[2022-11-03] MEDS: AMLODIPINE BESYLATE 5 MG TABLET PO SCH (08:57)
[2022-11-03] MEDS: ASPIRIN EC 81 MG TABLET.DR PO SCH (08:57)
[2022-11-03] MEDS: ACETAMINOPHEN 325 MG TABLET PO PRN (08:57)
[2022-11-03] MEDS: LABETALOL HCL (100MG) 100 MG TABLET PO SCH (08:57)
[2022-11-03] MEDS: LOSARTAN POTASSIUM 50 MG TABLET PO SCH ×2 (08:57→16:24)
[2022-11-03] MEDS: DOCUSATE SODIUM LIQ 100 MG/10 ML UDC PO SCH ×2 (09:00→16:25)
[2022-11-03] MEDS: POLYETHYLENE GLYCOL 3350 17 GM POWD.PACK PO SCH (09:00)
[2022-11-03] MEDS ORDERED: POTASSIUM CHLORIDE 20 MEQ TAB.PRT.SR PO ONE (11:30)
[2022-11-03] MEDS: CEFTRIAXONE 1 G in IV D5W 50 ML IV SCH (14:10)
--- NOTE | 2022-11-03 15:08 | NUR ---
PATIENT LEFT VIA GURNEY TO HAVE HER CT SCAN PREVIOUSLY ORDERED BY MD. PATIENT LEFT IN NO ACUTE DISTRESS.
--- NOTE | 2022-11-03 15:24 | NUR ---
PATIENT'S BACK FROM HER CT SCAN PROCEDURE. PATIENT IN NO APPARENT DISTRESS NOTED.
[2022-11-03 15:42] LABS: HEMOGLOBIN 6.1 g/dL (11.5-14.8)
--- NOTE | 2022-11-03 15:42 | NUR ---
RECEIVED A CALL FROM THE LAB WITH A REPORT FOR HEMOGLOBIN OF 6.1, REACHED OUT TO DR TEJEDA. AWAITING FURTHER ORDERS.
--- NOTE | 2022-11-03 15:54 | NUR ---
RECEIVED AN ORDER FROM DR TEJEDA TO TRANSFUSE 2 PRBC. PATIENT INFORMED AND WITNESSED CONSENT. ORDERS NOTED AND CARRIED OUT
[2022-11-03 17:40] LABS: BAND % (MANUAL) 3 % (0.0-5.0); EOSINOPHILS % (MANUAL) 1 % (0-4); LYMPHOCYTES % (MANUAL) 11 % (16-48); MONOCYTES % (MANUAL) 8 % (0-11.0); NEUTROPHILS % (MANUAL) 77 (42-76)
--- NOTE | 2022-11-03 18:25 | NUR ---
RECEIVED A CALL FROM THE LAB STATING THAT THE LAB IS READY. WILL PREPARE THE PATIENT FOR TRANSFUSION.
--- NOTE | 2022-11-03 18:44 | NUR ---
CUSTOMER OPERATIONS MANAGER CLOSING NOTES: PATINE IN BED AWAKE, ALERT ORIENTED X 4. NO C/O PAIN OR DISCOMFORT AT THIS TIME. V/A FOLLOWS: TEMP 98.3M BP 120/51, PULSE 85, RR, 20, 100 % OXYGEN SATURATION ON RA. IV ACCESS INTACT ON LEFT WRIST, INFUSING WITH NS @ 125 ML/HR, NO S/S INFILTRATION NOTED. ALL SAFETY MEASURES IN PLACE. WILL ENDORSE THE TRANSFUSION OF BLOOD AT THE INCOMING NURSE FOR CONTINUITY OF CARE AND FOR CLOSE MONITORING.
--- NOTE | 2022-11-03 19:00 | NUR ---
CABIN SUPERVISOR OPENING NOTES: RECEIVED PATIENT IN BED, AWAKE, ALERT, ORIENTED X 4. NO RESPIRATORY DISTRESS NOTED, BREATHING EVEN AND UNLABORED. ON R/A WITH [id number] OF 99%. ON tele sr on the monitor IV SITE ON right hand G#20 INTACT RUNNING WITH NS @ 125 ML/HR, IV SITE PATENT,hold at this time pts will have 2 units of prbc of blood to tranfuse as order d/t low hgb. NO S/S INFILTRATION NOTED. BILATERAL NEPHROSTOMY INTACT, DRAINING WITH BLOODY OUTPUT , F/C IN PLACE.ALSO NOTED HEMATURIA . ALL SAFETY MEASURES IN PLACE. BED LOCKED AND IN LOWEST POSITION WITH BED ALARM ON. CALL LIGHT WITHIN REACH. WILL CONTINUE TO MONITOR PATIENT THROUGHOUT SHIFT.
--- NOTE | 2022-11-03 19:13 | NUR ---
rn telehealth notes ist unit prbc started at 1910hrs with no ase noted v/s 116/57 pr 85 rr 20 temp 98.9
[2022-11-03] MEDS: ATORVASTATIN 10 MG TABLET PO SCH (21:06)
--- NOTE | 2022-11-03 22:00 | NUR ---
ist unit prbc ended at 2200hrs with no ase noted .
--- NOTE | 2022-11-03 22:35 | NUR ---
teletype telegrapher notes 2nd unit of prbc started at 2235hrs v/s bp 106/57 hr 84 rr 20 temp 99 will continue to monitor pts.
[2022-11-04] VITALS (8 sets, daily range): BP systolic 115–132; BP diastolic 48–74
--- NOTE | 2022-11-04 01:38 | NUR ---
telephone advice nurse notes 2nd unit of prbc ended at 0115hrs no ase noted,
[2022-11-04] MEDS: IV NS 0.9% 1,000 ML IV PRN ×3 (04:14→21:27)
--- NOTE | 2022-11-04 06:44 | NUR ---
TONE REGULATOR CLOSING NOTES: PATINE IN BED AWAKE, ALERT ORIENTED X 4. NO C/O PAIN OR DISCOMFORT AT THIS TIME., 100 % OXYGEN SATURATION ON RA. IV ACCESS INTACT ON RIGHT WRIST g20 INFUSING WITH NS @ 125 ML/HR, NO S/S INFILTRATION NOTED. ALL SAFETY MEASURES IN PLACE. WILL ENDORSE TO RN DAY SHIFT FOR CONTINUITY OF CARE
--- NOTE | 2022-11-04 07:10 | NUR ---
RN OPENING NOTES RECEIVED REPORT FROM NIGHTSHIFT RN KEVIN. PATIENT AWAKE IN BED ALERT AND ORIENTED TIMES 4. BREATHING EVENLY AND UNLABORED ON ROOM AIR. STATUS POST BLOOD TRANSFUSION, RECEIVED TWO UNITS. MOST RECENT HEMOGLOBIN AT 9.0. MCDONALD CATHETER DRAINING RED OUTPUT. BILATERAL NEPHROSTOMY TUBES NOTED, DRAINING RED OUTPUT. IV ACCESS MAINTAINED ON LEFT ANTECUBITAL RUNNING FLUIDS ORDERED. SAFETY MEASURES IMPLEMENTED, CALL LIGHT WITHIN REACH. WILL CONTINUE PLAN OF CARE AND ANTICIPATE NEEDS.
[2022-11-04] MEDS: DOCUSATE SODIUM LIQ 100 MG/10 ML UDC PO SCH ×2 (09:07→16:44)
[2022-11-04] MEDS: ASPIRIN EC 81 MG TABLET.DR PO SCH (09:07)
[2022-11-04] MEDS: POLYETHYLENE GLYCOL 3350 17 GM POWD.PACK PO SCH (09:07)
[2022-11-04] MEDS: LABETALOL HCL (100MG) 100 MG TABLET PO SCH (09:07)
[2022-11-04] MEDS: LOSARTAN POTASSIUM 50 MG TABLET PO SCH ×2 (09:07→16:44)
[2022-11-04] MEDS: AMLODIPINE BESYLATE 5 MG TABLET PO SCH (09:08)
[2022-11-04] MEDS: CEFTRIAXONE 1 G in IV D5W 50 ML IV SCH (13:26)
--- NOTE | 2022-11-04 18:57 | NUR ---
HAND OFF REPORT GIVEN TO NIGHTSHIFT RALPH BROWN FOR CONTINUATION OF CARE.
--- NOTE | 2022-11-04 20:00 | NUR ---
HAND TILE MAKER OPENING NOTES: RECEIVED PATIENT IN BED, AWAKE, ALERT, ORIENTED X 4. NO RESPIRATORY DISTRESS NOTED, BREATHING EVEN AND UNLABORED. ON R/A WITH [id number] OF 99%. ON tele SR 92 on the monitor IV SITE ON right hand G#20 INTACT RUNNING WITH NS @ 125 ML/HR, IV SITE PATENT, NO S/S INFILTRATION NOTED. BILATERAL NEPHROSTOMY INTACT, DRAINING WITH BLOODY OUTPUT ON THE LEFT SIDE , RIGHT SIDE NEPROSTOMY DRAINING CLEAR YELLOWIS DRAINAGE F/C IN PLACE.ALSO NOTED HEMATURIA . ALL DUE MEDS GIVEN ORDERED NO ASE NOTED .ALL NEEDS ATTENDED TOO. ALL SAFETY MEASURES IN PLACE. BED LOCKED AND IN LOWEST POSITION WITH BED ALARM ON. CALL LIGHT WITHIN REACH. WILL CONTINUE TO MONITOR PATIENT THROUGHOUT SHIFT.
[2022-11-04] MEDS: ACETAMINOPHEN 325 MG TABLET PO PRN (21:01)
[2022-11-04] MEDS: ATORVASTATIN 10 MG TABLET PO SCH (21:12)
[2022-11-05] VITALS: BP 117/65
[2022-11-05 04:00] VITALS: BP 137/62
[2022-11-05] MEDS: IV NS 0.9% 1,000 ML IV PRN ×2 (05:46→18:37)
[2022-11-05] MEDS: ACETAMINOPHEN 325 MG TABLET PO PRN ×2 (05:46→21:46)
[2022-11-05 06:52] LABS: BASOPHILS # (AUTO) 0.1 K/uL (0.0-0.2); BASOPHILS % (AUTO) 0.3 % (0.0-2.0); EOSINOPHILS % (AUTO) 2.1 % (0.0-6.0); HEMATOCRIT 27 % (33-45); HEMOGLOBIN 9.2 g/dL (11.5-14.8); MEAN CORPUSCULAR HGB CONC 34 g/dl (31.0-36.0); MEAN CORPUSCULAR VOLUME 91 fL (82-100); MONOCYTES # (AUTO) 1.3 K/uL (0.1-1.30); MONOCYTES % (AUTO) 7.7 % (2.0-12.0); NEUTROPHILS # (AUTO) 13.9 K/uL (1.8-8.9); NEUTROPHILS % (AUTO) 83.9 % (43.0-81.0); PLATELET COUNT (AUTO) 238 K/uL (150-450); RED BLOOD CELL COUNT(AUTO) 2.99 MIL/uL (4.0-5.2); WHITE BLOOD COUNT (AUTO) 16.5 K/uL (4.3-11.0)
[2022-11-05 07:15] LABS: CALCIUM, SERUM 7.7 mg/dL (8.5-10.1); CARBON DIOXIDE 20 mmol/L (21-32); CHLORIDE 109 mmol/L (98-107); CREATININE 2.1 mg/dL (0.6-1.3); GLUCOSE 130 mg/dL (74-106); PHOSPHORUS 2.8 mg/dL (2.5-4.9); POTASSIUM 3.4 mmol/L (3.5-5.1); SODIUM SERUM 141 mmol/L (136-145); UREA NITROGEN, BLOOD 32 mg/dL (7-18)
[2022-11-05 07:30] LABS: MAGNESIUM 1.2 mg/dL (1.8-2.4)
[2022-11-05 08:00] VITALS: BP 132/62
[2022-11-05] MEDS: POLYETHYLENE GLYCOL 3350 17 GM POWD.PACK PO SCH (10:07)
[2022-11-05] MEDS: LOSARTAN POTASSIUM 50 MG TABLET PO SCH ×2 (10:08→17:36)
[2022-11-05] MEDS: ASPIRIN EC 81 MG TABLET.DR PO SCH (10:08)
[2022-11-05] MEDS: DOCUSATE SODIUM LIQ 100 MG/10 ML UDC PO SCH ×2 (10:08→17:36)
[2022-11-05] MEDS: AMLODIPINE BESYLATE 5 MG TABLET PO SCH (10:08)
[2022-11-05] MEDS: LABETALOL HCL (100MG) 100 MG TABLET PO SCH (10:09)
--- NOTE | 2022-11-05 10:58 | NUR ---
RN NOTE NOTIFIED BY PHARMACY MAGNESIUM LEVEL IS 1.2L. NOTIFIED MD. AWAITING ORDERS TO REPLACE
[2022-11-05] MEDS ORDERED: POTASSIUM CHLORIDE 20 MEQ TAB.PRT.SR PO SCH (11:30)
--- NOTE | 2022-11-05 11:49 | NUR ---
RECREATIONAL RESORT MANAGER NOTE PER DR ZARA TRIMBLE TO ORDER MAG SULFATE 4 MG IVPB, MAG 1.2, ORDER CARRIED OUT
[2022-11-05 12:00] VITALS: BP 111/51
[2022-11-05] MEDS: Magnesium 1GM/D5W 100ML PREMIX 100 ML IV SCH ×4 (12:38→17:23)
[2022-11-05] MEDS ORDERED: POTASSIUM CHLORIDE 10 MEQ TABLET.SA PO SCH (13:00)
[2022-11-05] MEDS: CEFTRIAXONE 1 G in IV D5W 50 ML IV SCH (15:50)
[2022-11-05 16:00] VITALS: BP 131/62
[2022-11-05 17:34] LABS: BAND % (MANUAL) 1 % (0.0-5.0); EOSINOPHILS % (MANUAL) 1 % (0-4); LYMPHOCYTES % (MANUAL) 6 % (16-48); MONOCYTES % (MANUAL) 8 % (0-11.0); NEUTROPHILS % (MANUAL) 84 (42-76)
--- NOTE | 2022-11-05 19:10 | NUR ---
RN NOTE Patient in bed, AO x 4, in no acute distress, saturation at 99% on room air, SR on the monitor, HR is 84. IV line at R wrist patent and flushing well, NS infusing at 125 ml/hr, B nephrostomy tube and lanier catheter in place, draining to a bloody output. Safety measures implemented, bed is locked and at lowest position, hob elevated, call light within reach of patient. Will continue to monitor and reassess.
--- NOTE | 2022-11-05 19:18 | NUR ---
MOTOR BIKE MECHANIC CLOSING NOTES: PATIENT IN BED, AWAKE, ALERT, ORIENTED X 4. NO RESPIRATORY DISTRESS NOTED, BREATHING EVEN AND UNLABORED. ON R/A WITH [id number] OF 100%. ON TELE READING SR. IV SITE ON RIGHT HAND G#20 INTACT RUNNING WITH NS @ 125 ML/HR, IV SITE PATENT, NO S/S INFILTRATION NOTED. BILATERAL NEPHROSTOMY INTACT, DRAINING WITH BLOODY OUTPUT ON THE LEFT SIDE , RIGHT SIDE NEPHROSTOMY DRAINING CLEAR YELLOW DRAINAGE F/C IN PLACE NOTED HEMATURIA . ALL DUE MEDS GIVEN ORDERED. ALL ALL SAFETY MEASURES IN PLACE. BED LOCKED AND IN LOWEST POSITION WITH BED ALARM ON. CALL LIGHT WITHIN REACH. WILL ENDORSE CONTINUITY OF CARE TO PROGRAM CHECKER NURSE.
[2022-11-05 21:00] VITALS: BP 129/54
--- NOTE | 2022-11-05 21:18 | NUR ---
RN NOTE Per H&P stating discussion by Dr Forde with patient, patient wishes to be DNR/DNI, however, has not been ordered. Verified with patient and says her decision to be DNR/DNI has not changed, lost charge card clerk Lia as witness. Dr Squires made aware, and acknowledged. Patient signed POLST.
[2022-11-05] MEDS: ATORVASTATIN 10 MG TABLET PO SCH (21:26)
[2022-11-06] VITALS: BP 115/50
[2022-11-06] MEDS: IV NS 0.9% 1,000 ML IV PRN ×2 (03:58→23:50)
[2022-11-06 04:00] VITALS: BP 125/56
[2022-11-06 06:35] LABS: BASOPHILS # (AUTO) 0.1 K/uL (0.0-0.2); BASOPHILS % (AUTO) 0.5 % (0.0-2.0); HEMATOCRIT 25 % (33-45); HEMOGLOBIN 8.3 g/dL (11.5-14.8); MEAN CORPUSCULAR HGB CONC 33 g/dl (31.0-36.0); MEAN CORPUSCULAR VOLUME 92 fL (82-100); MONOCYTES # (AUTO) 1.3 K/uL (0.1-1.30); MONOCYTES % (AUTO) 9.7 % (2.0-12.0); NEUTROPHILS # (AUTO) 11.1 K/uL (1.8-8.9); NEUTROPHILS % (AUTO) 80.8 % (43.0-81.0); PLATELET COUNT (AUTO) 246 K/uL (150-450); RED BLOOD CELL COUNT(AUTO) 2.77 MIL/uL (4.0-5.2); WHITE BLOOD COUNT (AUTO) 13.7 K/uL (4.3-11.0)
--- NOTE | 2022-11-06 07:22 | NUR ---
RN OPENING NOTES PATIENT AWAKE IN BED ALERT AND ORIENTED TIMES 4. BREATHING EVENLY AND UNLABORED ON ROOM AIR. MCDONALD CATHETER DRAINING BLOODY URINE . BILATERAL NEPHROSTOMY TUBES NOTED, DRAINING RED OUTPUT. IV ACCESS ON THE R WRIST 20 G WITH NS RUNNING AT 25ML/HR . SAFETY MEASURES IMPLEMENTED, CALL LIGHT WITHIN REACH. WILL CONTINUE PLAN OF CARE AND ANTICIPATE NEEDS.
[2022-11-06 07:40] LABS: CALCIUM, SERUM 7.1 mg/dL (8.5-10.1); CARBON DIOXIDE 21 mmol/L (21-32); CHLORIDE 109 mmol/L (98-107); CREATININE 1.8 mg/dL (0.6-1.3); GLUCOSE 111 mg/dL (74-106); PHOSPHORUS 2.7 mg/dL (2.5-4.9); POTASSIUM 3.8 mmol/L (3.5-5.1); SODIUM SERUM 138 mmol/L (136-145); UREA NITROGEN, BLOOD 23 mg/dL (7-18)
[2022-11-06 08:00] VITALS: BP 140/56
[2022-11-06] MEDS: DOCUSATE SODIUM LIQ 100 MG/10 ML UDC PO SCH ×2 (09:06→16:31)
[2022-11-06] MEDS: POLYETHYLENE GLYCOL 3350 17 GM POWD.PACK PO SCH (09:06)
[2022-11-06] MEDS: AMLODIPINE BESYLATE 5 MG TABLET PO SCH (09:07)
[2022-11-06] MEDS: LABETALOL HCL (100MG) 100 MG TABLET PO SCH (09:08)
[2022-11-06] MEDS: ASPIRIN EC 81 MG TABLET.DR PO SCH (09:08)
[2022-11-06] MEDS: LOSARTAN POTASSIUM 50 MG TABLET PO SCH ×2 (09:08→16:31)
[2022-11-06] MEDS ORDERED: BETH50TA2 PO (11:59)
[2022-11-06] MEDS ORDERED: CEPH250C PO (11:59)
[2022-11-06 12:18] VITALS: BP 134/56
[2022-11-06] MEDS: CEFTRIAXONE 1 G in IV D5W 50 ML IV SCH (13:52)
--- NOTE | 2022-11-06 14:29 | NUR ---
per cm pt. willl be discharge @ 9AM TMRW.PT. AWARE.
[2022-11-06 16:59] VITALS: BP 124/75
--- NOTE | 2022-11-06 18:32 | NUR ---
BOOSTER ASSEMBLER CLOSING NOTES: PATIENT IN BED, AWAKE, ALERT, ORIENTED X 4. NO RESPIRATORY DISTRESS NOTED, BREATHING EVEN AND UNLABORED. ON R/A WITH O 2SATURATION OF 100%. ON TELE READING SR. IV SITE ON RIGHT HAND G#20 INTACT RUNNING WITH NS @ 125 ML/HR, IV SITE PATENT, NO S/S INFILTRATION NOTED. BILATERAL NEPHROSTOMY INTACT, DRAINING WITH BLOODY OUTPUT ON THE LEFT SIDE AND RIGHT SIDE F/C IN PLACE NOTED HEMATURIA . ALL DUE MEDS GIVEN ORDERED. ALL SAFETY MEASURES IN PLACE. BED LOCKED AND IN LOWEST POSITION WITH BED ALARM ON. CALL LIGHT WITHIN REACH. WILL ENDORSE CONTINUITY OF CARE TO FLUTE POLISHER NURSE.
--- NOTE | 2022-11-06 19:30 | NUR ---
PRODUCE LABORER OPENING NOTES RECEIVED PATIENT AWAKE IN BED IN HIGH BETANCOURT'S. A/O X4. BREATHING EVEN AND NON-LABORED ON ROOM AIR. NO C/O PAIN OR DISCOMFORT AT THIS TIME. ON TELE MONITOR READING SINUS RHYTHM AT 83 BPM. HAS THE FF IV ACCESS: LEFT WRIST #24G, SALINE LOCKED AND RIGHT WRIST #24G WITH NS RUNNING AT 125 ML/HR. NO S/S INFILTRATION NOTED. HAS BILATERAL NEPHROSTOMY, BOTH DRAINING BLOODY OUTPUT. HAS INDWELLING MCDONALD CATHETER DRAINING YELLOW URINE WITH MINIMAL HEMATURIA TO BAG BY GRAVITY. SAFETY PRECAUTIONS IN PLACE: BED LOCKED AND IN LOW POSITION, SIDE RAILS UP X2, CALL LIGHT WITHIN REACH. WILL CONTINUE POC.
[2022-11-06 20:00] VITALS: BP 124/57
[2022-11-06] MEDS: ATORVASTATIN 10 MG TABLET PO SCH (21:17)
[2022-11-06] MEDS: ACETAMINOPHEN 325 MG TABLET PO PRN (23:57)
--- NOTE | 2022-11-06 23:57 | NUR ---
ANNIKA ROSAS NOTES PATIENT C/O HEADACHE AND PAIN IN HER RIGHT FOOT D/T GOUT, . REFUSED MORPHINE, GAVE PRN TYLENOL 650 MG. TOLERATED WELL. Addendum: 11/07/22 at 0007 by April BOB ROSAS MILD FEVER OF 100.4 NOTED
[2022-11-07] VITALS: BP 134/62
[2022-11-07 04:00] VITALS: BP 124/56
[2022-11-07 06:15] LABS: BASOPHILS # (AUTO) 0.1 K/uL (0.0-0.2); BASOPHILS % (AUTO) 0.4 % (0.0-2.0); EOSINOPHILS % (AUTO) 1.6 % (0.0-6.0); HEMATOCRIT 25 % (33-45); HEMOGLOBIN 7.9 g/dL (11.5-14.8); LYMPHOCYTES # (AUTO) 1.1 K/uL (0.8-4.8); LYMPHOCYTES % (AUTO) 8.2 % (20.0-44.0); MEAN CORPUSCULAR HGB CONC 31 g/dl (31.0-36.0); MEAN CORPUSCULAR VOLUME 95 fL (82-100); MONOCYTES # (AUTO) 1.4 K/uL (0.1-1.30); MONOCYTES % (AUTO) 10.8 % (2.0-12.0); NEUTROPHILS # (AUTO) 10.1 K/uL (1.8-8.9); PLATELET COUNT (AUTO) 261 K/uL (150-450); RED BLOOD CELL COUNT(AUTO) 2.65 MIL/uL (4.0-5.2); WHITE BLOOD COUNT (AUTO) 12.8 K/uL (4.3-11.0)
--- NOTE | 2022-11-07 06:40 | NUR ---
CASE MANAGEMENT DIRECTOR CLOSING NOTES PATIENT LAYING IN BED AWAKE IN SEMI BETANCOURT'S. ABLE TO VERBALIZE NEEDS. NO ACUTE EVENTS DURING THE NIGHT. NO CARDIAC OR RESPIRATORY DISTRESS NOTED. DENIES PAIN AT THIS TIME. AFEBRILE. ON TELE MONITOR READING SINUS RHYTHM AT 79 BPM. RIGHT WRIST IV ACCESS #24G INTACT, PATENT AND FLUSHING. BLOOD STILL NOTED ON BOTH NEPHROSTOMY, LEFT DARKER THAN RIGHT. BLOOD-TINGED URINE OUTPUT STILL NOTED. ALL DUE MEDS GIVEN AND NEEDS ATTENDED. NO SKIN PROBLEM NOTED. SAFETY PRECAUTIONS MAINTAINED. WILL ENDORSE TO NEXT SHIFT FOR JEANETH.
[2022-11-07 06:52] LABS: CALCIUM, SERUM 7.7 mg/dL (8.5-10.1); CARBON DIOXIDE 19 mmol/L (21-32); CHLORIDE 109 mmol/L (98-107); CREATININE 1.8 mg/dL (0.6-1.3); GLUCOSE 109 mg/dL (74-106); MAGNESIUM 1.6 mg/dL (1.8-2.4); POTASSIUM 3.9 mmol/L (3.5-5.1); SODIUM SERUM 140 mmol/L (136-145); UREA NITROGEN, BLOOD 23 mg/dL (7-18)
--- NOTE | 2022-11-07 07:00 | NUR ---
BAG PRINTER OPENING NOTES: RECEIVED PATIENT IN AWAKE, ALERT AND ORIENTED X 3 AND ABLE TO VERBALIZED NEEDS. NO SOB OR CARDIAC DISTRESS NOTED,ON ROOM AIR SATURATING AT 99%. ON MEDICAL RESEARCH ASSISTANT WITH CURRENT READING OF SINUS RHYTHM @79 BPM. IV ACCESS ON R WRIST PATENT, INTACT AND INFUSING NS @ 125 ML/HR. NOTED WITH NEPHROSTOMY ON R/L INTACT. SAFETY MEASURES MAINTAINED: BED LOCKED AND IN LOWEST POSITION, SIDE RAILS UP X 2,CALL LIGHT IN EASY REACH AND WILL MONITOR PT ACCORDINGLY.
[2022-11-07 08:00] VITALS: BP 138/68
[2022-11-07] MEDS: DOCUSATE SODIUM LIQ 100 MG/10 ML UDC PO SCH (08:16)
[2022-11-07] MEDS: ASPIRIN EC 81 MG TABLET.DR PO SCH (08:16)
[2022-11-07] MEDS: POLYETHYLENE GLYCOL 3350 17 GM POWD.PACK PO SCH (08:16)
[2022-11-07 08:17] VITALS: BP 134/60
[2022-11-07] MEDS: LABETALOL HCL (100MG) 100 MG TABLET PO SCH (08:17)
[2022-11-07] MEDS: AMLODIPINE BESYLATE 5 MG TABLET PO SCH (08:17)
[2022-11-07] MEDS: LOSARTAN POTASSIUM 50 MG TABLET PO SCH (08:17)
--- NOTE | 2022-11-07 10:37 | NUR ---
WILDLIFE OFFICER NOTES: PATIENT DC TO [facility] REPORT GIVEN TO ESTHELA. PATIENT ALERT AND ORIENTED X4 AND ABLE TO VERBALIZED NEEDS. NO SOB OR CARDIAC DISTRESS NOTED, REMOVED ORACLE SECURITY CONSULTANT AND HANDED TO KEY ACCOUNT REPRESENTATIVE CAMRON HARDWICK. IV ACCESS REMOVED AND SECURED WITH GAUZE AND TAPE. EMPTIED [employer]D CATHETER 350CC DRAINED CLEAR LIGHT YELLOW COLORED URINE NEPHROSTOMY TUBES DRAINED I=059TO DRAINED CLEAR PINKISH COLORED OUTPUT,GJHU=[id number] DRAINING CLEAR LIGHT YELLOW COLORED URINE. DISCHARGE INSTRUCTIONS AND MEDS GIVEN TO PT/PARAMEDICS. PTS BELONGINGS WITH THE PARAMEDICS. PT WAS TRANSFERRED TO [facility]. PATIENT LEFT THE UNIT STABLE.
== END 2022-11-07 10:37 | DRG 871 ==
LOC: ER 13:50 → TELE-TD 22:21 → TELE1 10-30 00:03
PROVIDERS: ADMIT Internal Medicine; ATTEND Nurse Practitioner Acute Care
PROC: 30233N1 Transfusion of Nonautologous Red Blood Cells into Peripheral Vein, Percutaneous Approach (ICD-10-PCS; principal; 2022-10-30)
DX: A41.9 Sepsis, unspecified organism (principal); N17.0 Acute kidney failure with tubular necrosis; E23.2 Diabetes insipidus; E87.20 Acidosis, unspecified; N13.6 Pyonephrosis; N30.91 Cystitis, unspecified with hematuria; R65.20 Severe sepsis without septic shock; D63.8 Anemia in other chronic diseases classified elsewhere; I10 Essential (primary) hypertension; E78.00 Pure hypercholesterolemia, unspecified; N32.3 Diverticulum of bladder; K59.00 Constipation, unspecified; N32.81 Overactive bladder; Z20.822 Contact with and (suspected) exposure to COVID-19; E87.5 Hyperkalemia; Z93.6 Other artificial openings of urinary tract status
CPT/HCPCS: 36415; 70450-TC; 71045-TC; 75989; 76770-TC; 80048-TC; 80053-TC; 80076-TC; 81001; 82010-TC; 82550-TC; 82570-TC; 82728-TC; 83540-TC; 83605-TC; 83735-TC; 84100-TC; 84300-TC; 84484-TC; 85025-TC; 85027-TC; 85730-TC; 86850-TC; 87040-TC; 87081-TC; 87086-TC; A4217; C9803; G0378; J0360; J0696; J2270; J2405; J3475; J3490; J7030; J7040; J7050; J7060; P9016

== ENCOUNTER 2022-11-16 17:10 | Inpatient (IN) | payer MEDICARE, OTHER ==
[~2022-11-16] VITALS: Ht 157.5 cm; Wt 58.1 kg
[~2022-11-16 17:10] MED LIST: AMLO-212 PO; ASPI-1498 PO; ATOR10TA PO; BETH50TA2 PO; CEPH250C PO; LABE300T2 PO; LOSA1TAB39 PO; OXYC5TAB3 PO
--- NOTE | 2022-11-16 19:07 | NUR ---
[id number] FRM SCRC FOR ABNORMAL LAB, HGB 3.7, BUN 70 AND CREA 1.97. ON ROOM AIR, BREATHING EVENLY AND UNLABORED. CONNECTED TO THE MONITOR AND PULSE OX. KEPT COMFORTABLE, WILL CONTINUE TO MONITOR ACCORDINGLY.
[2022-11-16 19:57] LABS: ALANINE AMINOTRANSFERASE 37 U/L (12-78); ALBUMIN 2.8 g/dL (3.4-5.0); ALKALINE PHOSPHATASE 59 U/L (46-116); ASPARTATE AMINOTRANSFERASE 34 U/L (15-37); BILIRUBIN,DIRECT 0.1 mg/dL (0.0-0.2); BILIRUBIN,TOTAL 0.3 mg/dL (0.2-1.0); CALCIUM, SERUM 8.6 mg/dL (8.5-10.1); CARBON DIOXIDE 20 mmol/L (21-32); CHLORIDE 105 mmol/L (98-107); CREATININE 2.1 mg/dL (0.6-1.3); GLUCOSE 118 mg/dL (74-106); POTASSIUM 4.1 mmol/L (3.5-5.1); SODIUM SERUM 132 mmol/L (136-145); TOTAL PROTEIN, SERUM 6.5 g/dL (6.4-8.2); UREA NITROGEN, BLOOD 48 mg/dL (7-18)
[2022-11-16 20:54] LABS: BASOPHILS # (AUTO) 0.1 K/uL (0.0-0.2); BASOPHILS % (AUTO) 0.7 % (0.0-2.0); EOSINOPHILS % (AUTO) 2.3 % (0.0-6.0); LYMPHOCYTES # (AUTO) 3.3 K/uL (0.8-4.8); LYMPHOCYTES % (AUTO) 18.1 % (20.0-44.0); MEAN CORPUSCULAR HGB CONC 32 g/dl (31.0-36.0); MEAN CORPUSCULAR VOLUME 99 fL (82-100); MONOCYTES % (AUTO) 11.1 % (2.0-12.0); NEUTROPHILS # (AUTO) 12.4 K/uL (1.8-8.9); NEUTROPHILS % (AUTO) 67.8 % (43.0-81.0); PLATELET COUNT (AUTO) 337 K/uL (150-450); WHITE BLOOD COUNT (AUTO) 18.2 K/uL (4.3-11.0)
[2022-11-16 21:03] LABS: HEMATOCRIT 13 % (33-45)
[2022-11-16 21:04] LABS: HEMOGLOBIN 4.1 g/dL (11.5-14.8)
--- NOTE | 2022-11-16 21:24 | NUR ---
blod consetn signed by patient and md and placed in pt chart
[2022-11-16 22:11] LABS: BAND % (MANUAL) 7 % (0.0-5.0); EOSINOPHILS % (MANUAL) 3 % (0-4); LYMPHOCYTES % (MANUAL) 22 % (16-48); METAMYELOCYTES % 1 % (0-0); MONOCYTES % (MANUAL) 13 % (0-11.0); NEUTROPHILS % (MANUAL) 54 (42-76)
--- NOTE | 2022-11-16 22:50 | NUR ---
blood transfusion initiated at 75ml/hr. vss prior to infusion and verified by to RNs.
--- NOTE | 2022-11-16 23:05 | NUR ---
pt tolerating transfusion well no s/s of tranfusion reaction. rate increased to 120ml/hr.
--- NOTE | 2022-11-16 23:05 | NUR ---
Kody fischer in ED - 11/17/22 at 0359 by [facility] blood transfusion initiated at 75ml/hr. vss prior to infusion and verified by to RNs.
[2022-11-16] MEDS ORDERED: ACETAMINOPHEN 325 MG TABLET PO PRN (23:30)
[2022-11-16] MEDS ORDERED: ONDANSETRON HCL/PF 4 MG/2 ML VIAL IVP PRN (23:30)
[2022-11-16] MEDS ORDERED: MAG HYDROX/AL HYDROX/SIMETH 30 ML UDC PO PRN (23:30)
[2022-11-16] MEDS ORDERED: MAGNESIUM HYDROXIDE 30 ML UDC PO PRN (23:30)
[2022-11-16] MEDS ORDERED: ZOLPIDEM TARTRATE 5 MG TABLET PO PRN (23:30)
[2022-11-16] MEDS ORDERED: Z GUARD REMEDY 4 OZ OINT TP PRN (23:30)
[2022-11-17] VITALS (15 sets, daily range): BP systolic 102–124; BP diastolic 42–65
[2022-11-17] MEDS ORDERED: CEFTRIAXONE 1 G in IV D5W 50 ML IV ONE ×2
--- NOTE | 2022-11-17 | NUR ---
urine sent to lab
[2022-11-17 00:54] LABS: BILIRUBIN,URINE NEGATIVE (NEGATIVE); COLOR,URINE YELLOW (YELLOW); LEUKOCYTE ESTERASE ,URINE 1+ (NEGATIVE); NITRITE, URINE NEGATIVE (NEGATIVE); PROTEIN,URINE TRACE mg/dl (NEGATIVE); UGLUCOSE NEGATIVE (NEGATIVE); UROBILINOGEN,URINE 0.2 EU/dL (0.2)
[2022-11-17 01:29] LABS: BACTERIA,URINE Rare /HPF (None Seen); RBC,URINE 0-2 /HPF (0-2)
[2022-11-17 01:30] LABS: YEAST,URINE Few /HPF (None Seen)
[2022-11-17] MEDS ORDERED: IV NS 0.9% 1,000 ML IV ONE ×2 (01:30)
[2022-11-17 01:31] LABS: SQUAMOUS EPITHELIAL CELL,UR Few /HPF (None Seen)
--- NOTE | 2022-11-17 01:38 | NUR ---
room 306-2
--- NOTE | 2022-11-17 02:07 | NUR ---
blood transfusion of 1 unit prbc infused without any [id number]. no s/s of reaction or overload. transfusiuon form completed and faxed to lab
--- NOTE | 2022-11-17 02:20 | NUR ---
report given to marily
--- NOTE | 2022-11-17 03:33 | NUR ---
pt transported to room 306 on monitoring tech per acls in stable condition
--- NOTE | 2022-11-17 03:45 | NUR ---
practice professional notes Received Pt from ER nurse RALPH Wilson. Pt is alert and orientedX4. On room air. No SOB. No S/S of distress noted. S/P 1 unit PRBC in ER. IV site at R hand is clean, intact and flushes well. IV site at L wrist # 20 is clean, intact and flushes well. Tele monitor showed SR. VS is stable. Melendrez cath is inplaced and draining yellow urine. L posterior back nephrostomy and R posterior back nephrostomy are inplaced and intact, clean and dry. Skin assesment is done and performed. Pt skin is intact. Pt's belonging was checked by JOSE Burns and signed by Pt. Reorient Pt to the room and the use of call light. safety precautions is maintained. bed at low position, brakes locked, side rails upX2, hob elevated, bed alarm is on and call light is within reach. will continue to monitor.
[2022-11-17] MEDS ORDERED: CEFTRIAXONE 1 G VIAL ONE (04:17)
--- NOTE | 2022-11-17 05:21 | NUR ---
RN notes Picked up blood from lab.
--- NOTE | 2022-11-17 05:35 | NUR ---
RN notes 1 unit PRBC started. PRBC checked and cosigned by RALPH Perez. VS is stable.
--- NOTE | 2022-11-17 07:00 | NUR ---
RN closing notes Pt is resting in bed comfortably. Pt is alert and orientedX4. On room air. No SOB. No S/S of distress noted. VS is stable. Ongoing 1 unit PRBC. No S/S of distress noted. Pt tolerated well. Safety precautions is maintained. Will endorse to am nurse for JEANETH.
--- NOTE | 2022-11-17 07:10 | NUR ---
TRANSFER AND PUMPHOUSE OPERATOR CHIEF OPENING NOTES Received patient in bed awake, alert and oriented. A/O x 4. On room air, no s/sx of respiratory distress noted. No SOB. On Melendrez cath, right and left nephrostomy. NS @75ml/hr infusing well at right hand #20. Safety precautions maintained with bed on low position and locked. Side rails x 2. Call light within reach. Will continue with the plan of care.
[2022-11-17] MEDS: CEPHALEXIN MONOHYDRATE 250 MG CAPSULE PO SCH ×3 (08:43→17:09)
[2022-11-17] MEDS: oxyCODONE IR immediate release 5 MG PO SCH ×2 (08:43→17:10)
[2022-11-17] MEDS: PANTOPRAZOLE 40 MG TABLET.DR PO SCH (08:44)
[2022-11-17] MEDS: LABETALOL HCL (100MG) 100 MG TABLET PO SCH (08:45)
[2022-11-17] MEDS: LOSARTAN/HCTZ 50-12.5MG/ 1 EA TABLET PO SCH (08:46)
[2022-11-17] MEDS: AMLODIPINE BESYLATE 5 MG TABLET PO SCH (08:46)
--- NOTE | 2022-11-17 08:52 | NUR ---
RN NOTE BLOOD TRANSFUSION DONE. PATIENT TOLERATING WELL WITH STABLE VITAL SIGNS. AWAITING FOR SECOND UNIT OF PRBC.
[2022-11-17] MEDS ORDERED: BETHANECHOL CHLORIDE 50 MG TABLET PO SCH (09:00)
[2022-11-17 10:02] LABS: BASOPHILS # (AUTO) 0.1 K/uL (0.0-0.2); BASOPHILS % (AUTO) 0.7 % (0.0-2.0); HEMATOCRIT 22 % (33-45); LYMPHOCYTES # (AUTO) 1.6 K/uL (0.8-4.8); LYMPHOCYTES % (AUTO) 13.5 % (20.0-44.0); MEAN CORPUSCULAR HGB CONC 32 g/dl (31.0-36.0); MEAN CORPUSCULAR VOLUME 95 fL (82-100); MONOCYTES # (AUTO) 1.1 K/uL (0.1-1.30); MONOCYTES % (AUTO) 8.8 % (2.0-12.0); NEUTROPHILS # (AUTO) 8.9 K/uL (1.8-8.9); PLATELET COUNT (AUTO) 237 K/uL (150-450); RED BLOOD CELL COUNT(AUTO) 2.33 MIL/uL (4.0-5.2); WHITE BLOOD COUNT (AUTO) 12.1 K/uL (4.3-11.0)
[2022-11-17] MEDS: BETHANECHOL CHLORIDE (25 MG) 25 MG TABLET PO SCH ×3 (10:17→18:37)
[2022-11-17 10:36] LABS: CALCIUM, SERUM 7.9 mg/dL (8.5-10.1); CARBON DIOXIDE 21 mmol/L (21-32); CHLORIDE 105 mmol/L (98-107); CREATININE 1.9 mg/dL (0.6-1.3); GLUCOSE 162 mg/dL (74-106); MAGNESIUM 1.5 mg/dL (1.8-2.4); PHOSPHORUS 2.7 mg/dL (2.5-4.9); SODIUM SERUM 134 mmol/L (136-145); UREA NITROGEN, BLOOD 37 mg/dL (7-18)
[2022-11-17] MEDS: IV NS 0.9% 1,000 ML IV SCH ×2 (13:13→22:15)
--- NOTE | 2022-11-17 15:10 | NUR ---
RN NOTES V/S CHECKED, STABLE. BLOOD PRODUCTS DOUBLE CHECKED WITH RALPH INTERIANO. STARTED 1 UNIT PRBC @60 ML/HR. WILL RE-CHECK VITALS AFTER 15 MINUTES.
--- NOTE | 2022-11-17 15:25 | NUR ---
RN NOTE V/S CHECKED, STABLE. WILL CONTINUE TO MONITOR AFTER 30 MINS OF BT.
--- NOTE | 2022-11-17 15:55 | NUR ---
RN NOTE V/S checked, stable. Increase to 100ml/hr. Will continue to monitor for BT.
--- NOTE | 2022-11-17 16:55 | NUR ---
RN NOTE V/S checked, stable. Increase to 120 ml/hr. Will continue to monitor BT.
[2022-11-17] MEDS ORDERED: Magnesium 1GM/D5W 100ML PREMIX PIGGYBACK IV ONE (18:30)
[2022-11-17 18:38] LABS: BAND % (MANUAL) 2 % (0.0-5.0); EOSINOPHILS % (MANUAL) 4 % (0-4); LYMPHOCYTES % (MANUAL) 20 % (16-48); MONOCYTES % (MANUAL) 7 % (0-11.0); NEUTROPHILS % (MANUAL) 67 (42-76)
--- NOTE | 2022-11-17 19:00 | NUR ---
RN PROGRESSIVE CARE UNIT CLOSING NOTES PATIENT ON BED AWAKE AND A/O X4. ON ROOM AIR TOLERATING WELL. NO SOB NOTED. NOT IN DISTRESS. WITH NO COMPLAINTS OF PAIN OR DISCOMFORT AT THIS TIME. WITH IV ACCESS AT THE RIGHT HAND G20 WITH IVF NS AT 90ML/HR INFUSING WELL. ON TELE MONITOR CURRENTLY READING SINUS RHYTHM AT 76BPM. STATUS POST BLOOD TRANSFUSION 1U PRBC TOLERATING WELL. WITH MCDONALD CATHETER DRAINING CLEAR YELLOW URINE AND BILATERAL NEPHROSTOMY TUBE DRAINING CLEAR YELLOW URINE. DUE MEDS GIVEN. SAFETY MEASURES IN PLACED. CALL LIGHT WITHIN REACH. BED ON LOWEST LOCKED POSITION, SIDE RAILS UP X2. WILL ENDORSE TO NEXT SHIFT FOR JEANETH.
--- NOTE | 2022-11-17 19:30 | NUR ---
STUD BEEF CATTLE FARMER OPENING NOTE Received patient in bed awake. Pt alert and oriented A/O x 4, able to make needs known. On room air, tolerating RA well. No s/s of respiratory distress noted, no SOB. No c/o pain. Has lanier catheter draining clear yellow urine with no odor, and right and left nephrostomy tubes. IV access to right hand # 20G infusing NS @90 ml/hr, IV intact, and patent. Safety precautions maintained with bed on low position and locked. Side rails up x 2. Call light within reach. Will continue to monitor pt.
[2022-11-17] MEDS ORDERED: Magnesium 1GM/D5W 100ML PREMIX 100 ML IV SCH (20:00)
[2022-11-17] MEDS: ATORVASTATIN 10 MG TABLET PO SCH (22:14)
[2022-11-18 00:34] VITALS: BP 117/54
[2022-11-18 04:23] VITALS: BP 113/53
[2022-11-18 06:25] LABS: BASOPHILS # (AUTO) 0.1 K/uL (0.0-0.2); BASOPHILS % (AUTO) 0.8 % (0.0-2.0); EOSINOPHILS % (AUTO) 3.1 % (0.0-6.0); HEMATOCRIT 29 % (33-45); HEMOGLOBIN 9.8 g/dL (11.5-14.8); LYMPHOCYTES # (AUTO) 1.4 K/uL (0.8-4.8); MEAN CORPUSCULAR HGB CONC 34 g/dl (31.0-36.0); MEAN CORPUSCULAR VOLUME 89 fL (82-100); MONOCYTES # (AUTO) 1.3 K/uL (0.1-1.30); MONOCYTES % (AUTO) 12.8 % (2.0-12.0); NEUTROPHILS # (AUTO) 7.1 K/uL (1.8-8.9); NEUTROPHILS % (AUTO) 69.3 % (43.0-81.0); PLATELET COUNT (AUTO) 280 K/uL (150-450); RED BLOOD CELL COUNT(AUTO) 3.23 MIL/uL (4.0-5.2); WHITE BLOOD COUNT (AUTO) 10.3 K/uL (4.3-11.0)
--- NOTE | 2022-11-18 06:54 | NUR ---
WEB PROJECT MANAGER CLOSING NOTE LEFT PATIENT IN BED, AWAKE. PT A/O X4. ON ROOM AIR TOLERATING WELL. NO SOB, NO RESPIRATORY DISTRESS NOTED. NO COMPLAINTS OF PAIN OR DISCOMFORT AT THIS TIME. IV ACCESS TO RIGHT HAND G20 WITH IVF NS AT 90ML/HR INFUSING WELL. ON TELE MONITOR CURRENTLY READING SINUS RHYTHM AT 82 BPM. MCDONALD CATHETER DRAINING CLEAR YELLOW URINE AND BILATERAL NEPHROSTOMY TUBE DRAINING CLEAR YELLOW URINE, 1500 ML OF URINE DRAINED TO RIGHT NEPHROSTOMY TUBE, AND 600 ML DRAINED TO LEFT TUBE. DUE MEDS GIVEN. SAFETY MEASURES IN PLACED. CALL LIGHT WITHIN REACH. BED ON LOWEST LOCKED POSITION, SIDE RAILS UP X2. WILL ENDORSE TO NEXT SHIFT FOR JEANETH.
--- NOTE | 2022-11-18 07:00 | NUR ---
GREEN INSPECTOR OPENING NOTES PATIENT LAYING IN BED, A/O X 4, ABLE TO MAKE NEEDS KNOWN, TOLERATING WELL ON ROOM AIR WITH NO S/S RESPIRATORY DISTRESS. NO COMPLAINTS OF PAIN OR DISCOMFORT. R HAND # 20 G IV WITH NS INFUSING @ 90 ML/HR. TELE MONITOR IN PLACE READING SR 97 WITH PVCs. MCDONALD CATHETER IN PLACE DRAINING CLEAR YELLOW URINE TO GRAVITY, AND BILATERAL NEPHROSTOMY TUBES IN PLACE DRAINING CLEAR YELLOW URINE TO GRAVITY. SAFETY MEASURES IN PLACE: BED IN LOWEST LOCKED POSITION, SIDE RAILS UP X 2, CALL LIGHT WITHIN REACH. WILL CONTINUE TO MONITOR. Addendum: 11/18/22 at 0750 by ALEXANDRE FARMER RN TELE MONITOR IN PLACE READING NSR 82
[2022-11-18 07:12] LABS: CALCIUM, SERUM 8.3 mg/dL (8.5-10.1); CARBON DIOXIDE 24 mmol/L (21-32); CHLORIDE 104 mmol/L (98-107); CREATININE 1.7 mg/dL (0.6-1.3); GLUCOSE 116 mg/dL (74-106); MAGNESIUM 2.2 mg/dL (1.8-2.4); PHOSPHORUS 2.7 mg/dL (2.5-4.9); SODIUM SERUM 138 mmol/L (136-145); UREA NITROGEN, BLOOD 29 mg/dL (7-18)
[2022-11-18 08:00] VITALS: BP 111/52
[2022-11-18] MEDS: PANTOPRAZOLE 40 MG TABLET.DR PO SCH (08:16)
[2022-11-18] MEDS: LOSARTAN/HCTZ 50-12.5MG/ 1 EA TABLET PO SCH (08:18)
[2022-11-18] MEDS: AMLODIPINE BESYLATE 5 MG TABLET PO SCH (08:20)
[2022-11-18] MEDS: LABETALOL HCL (100MG) 100 MG TABLET PO SCH (08:20)
[2022-11-18] MEDS: CEPHALEXIN MONOHYDRATE 250 MG CAPSULE PO SCH ×3 (08:25→17:44)
[2022-11-18] MEDS: IV NS 0.9% 1,000 ML IV SCH ×2 (08:25→20:56)
[2022-11-18] MEDS: BETHANECHOL CHLORIDE (25 MG) 25 MG TABLET PO SCH ×3 (08:25→17:44)
[2022-11-18] MEDS: oxyCODONE IR immediate release 5 MG PO SCH ×2 (08:28→17:00)
[2022-11-18] MEDS: ENSURE ENLIVE 237 ML LIQUID (VANILLA) PO SCH ×3 (10:30→17:43)
[2022-11-18 12:00] VITALS: BP 111/51
[2022-11-18] MEDS ORDERED: DOCUSATE SODIUM 100 MG CAPSULE PO PRN (14:00)
[2022-11-18] MEDS: SENNOSIDES 8.6 MG TABLET PO SCH (14:34)
[2022-11-18 16:00] VITALS: BP 118/45
--- NOTE | 2022-11-18 18:36 | NUR ---
VP CONSTRUCTION CLOSING NOTES PATIENT LAYING IN BED, A/O X 4, ABLE TO MAKE NEEDS KNOWN, TOLERATING WELL ON ROOM AIR WITH NO S/S RESPIRATORY DISTRESS. NO COMPLAINTS OF PAIN OR DISCOMFORT. L HAND # 22 G IV WITH NS INFUSING @ 90 ML/HR. TELE MONITOR IN PLACE READING NSR 80 WITH PVCs. MCDONALD CATHETER IN PLACE DRAINING CLEAR YELLOW URINE TO GRAVITY, AND BILATERAL NEPHROSTOMY TUBES IN PLACE DRAINING CLEAR YELLOW URINE TO GRAVITY. SAFETY MEASURES IN PLACE: BED IN LOWEST LOCKED POSITION, SIDE RAILS UP X 2, CALL LIGHT WITHIN REACH. ALL NEEDS MET. WILL ENDORSE TO DIALS SUPERVISOR FOR JEANETH.
--- NOTE | 2022-11-18 19:05 | NUR ---
EQUIPMENT ASSOCIATE OPENING NOTE PATIENT IS RESTING IN BED. ALERT AND ORIENTED, AO X 3. SHE IS ON RA, TOLERATED WELL; NO S/S OF DISTRESS. PATIENT IS ON BED REST. PATIENTS CODE STATUS IS DNR/DNI PER MD ORDER ON 11/17/2022. SHE HAS IV ACCESS AT HER LEFT HAND, #22g, RUNNING NS @ 90 ML / HR. IV SITE IS PATENT AND INTACT. INSTRUCTED PATIENT TO CALL THE LI WHEN SHE NEEDS HELP. PATIENT VERBALIZED UNDERSTANDING. PATIENT IS ON TELE MONITOR, AND THE RHYTHM ON THE MONITOR IS: SR; HR IS AT AROUND 80S BPM. SAFETY MEASURES ARE IN PLACE: BED IN LOCK AND LOWEST POSITION; CALL LIGHT AND TABLE ARE WITHIN REACH; SIDE RAILS UP X 2. WILL CONTINUE MONITORING THE PATIENT AND PROVIDE THE CARE PATIENT NEEDS. Addendum: 11/19/22 at 0444 by HARIS WEINSTEIN RN PATIENT HAS TWO NEPHROSTOMY TUBE DRAINING BAGS FROM HER RIGHT AND LEFT SIDE. PATENT AND INTACT. PATIENT HAS MCDONALD CATHETER, DRAINING URINE BY GRAVITY FREELY.
[2022-11-18 20:00] VITALS: BP 121/56
[2022-11-18] MEDS: PANTOPRAZOLE 40 MG VIAL IV SCH (21:03)
[2022-11-18] MEDS: ATORVASTATIN 10 MG TABLET PO SCH (21:06)
[2022-11-19] VITALS: BP 129/64
[2022-11-19 04:00] VITALS: BP 113/50
[2022-11-19 04:03] LABS: BAND % (MANUAL) 3 % (0.0-5.0); EOSINOPHILS % (MANUAL) 4 % (0-4); LYMPHOCYTES % (MANUAL) 18 % (16-48); MONOCYTES % (MANUAL) 13 % (0-11.0); NEUTROPHILS % (MANUAL) 62 (42-76)
--- NOTE | 2022-11-19 05:20 | NUR ---
STUDENT NOTE PATIENT STATED SHE HADN'T HAVING BOWEL MOVEMENT FOR 3 DAYS. PRN MEDICATION COLACE 100 MG GIVEN PO FOR CONSTIPATION.
[2022-11-19 06:15] LABS: BASOPHILS % (AUTO) 0.5 % (0.0-2.0); EOSINOPHILS % (AUTO) 3.1 % (0.0-6.0); HEMATOCRIT 28 % (33-45); HEMOGLOBIN 9.3 g/dL (11.5-14.8); LYMPHOCYTES # (AUTO) 1.4 K/uL (0.8-4.8); LYMPHOCYTES % (AUTO) 17.5 % (20.0-44.0); MEAN CORPUSCULAR HGB CONC 33 g/dl (31.0-36.0); MEAN CORPUSCULAR VOLUME 91 fL (82-100); MONOCYTES # (AUTO) 1.3 K/uL (0.1-1.30); MONOCYTES % (AUTO) 15.1 % (2.0-12.0); NEUTROPHILS # (AUTO) 5.3 K/uL (1.8-8.9); NEUTROPHILS % (AUTO) 63.8 % (43.0-81.0); PLATELET COUNT (AUTO) 267 K/uL (150-450); RED BLOOD CELL COUNT(AUTO) 3.08 MIL/uL (4.0-5.2); WHITE BLOOD COUNT (AUTO) 8.3 K/uL (4.3-11.0)
[2022-11-19] MEDS: IV NS 0.9% 1,000 ML IV SCH ×2 (06:30→16:51)
--- NOTE | 2022-11-19 06:58 | NUR ---
FEED MILLER CLOSING NOTE PATIENT IS RESTING IN BED. ALERT AND ORIENTED, AO X 3. SHE IS ON RA, TOLERATED WELL; NO S/S OF DISTRESS. PATIENT IS ON BED REST. PATIENTS CODE STATUS IS DNR/DNI PER MD ORDER ON 11/17/2022. SHE HAS IV ACCESS AT HER LEFT HAND, #22g, RUNNING NS @ 90 ML / HR. IV SITE IS PATENT AND INTACT. PATIENT IS ON TELE MONITOR, AND THE RHYTHM ON THE MONITOR IS: SR; HR IS AT AROUND 80S BPM. PATIENT HAS TWO NEPHROSTOMY TUBE DRAINING BAGS FROM HER RIGHT AND LEFT SIDE. PATENT AND INTACT. PATIENT HAS MCDONALD CATHETER, DRAINING URINE BY GRAVITY FREELY. SAFETY MEASURES ARE IN PLACE: BED IN LOCK AND LOWEST POSITION; CALL LIGHT AND TABLE ARE WITHIN REACH; SIDE RAILS UP X 2. WILL ENDORSE NEXT SHIFT NURSE FOR CONTINUING PATIENT CARE.
[2022-11-19 07:10] LABS: CALCIUM, SERUM 7.9 mg/dL (8.5-10.1); CARBON DIOXIDE 26 mmol/L (21-32); CHLORIDE 103 mmol/L (98-107); CREATININE 1.6 mg/dL (0.6-1.3); GLUCOSE 110 mg/dL (74-106); MAGNESIUM 1.8 mg/dL (1.8-2.4); PHOSPHORUS 3.5 mg/dL (2.5-4.9); POTASSIUM 3.9 mmol/L (3.5-5.1); SODIUM SERUM 136 mmol/L (136-145); UREA NITROGEN, BLOOD 26 mg/dL (7-18)
--- NOTE | 2022-11-19 07:30 | NUR ---
RN Opening Note Patient AOx4 able to express her own concerns. Patient reports no pain, no signs of discomfort or distress. Discussed plan of care, pt verbalized agreement. All safety precautions taken, call light and table within reach, bed at lowest position. Will continue to monitor throughout shift
--- NOTE | 2022-11-19 07:40 | NUR ---
ORDER PLACED AGAIN FOR DNR/DNI STATUS DUE TO MD HAVING SPOKEN WITH PATIENT'S FAMILY
[2022-11-19 08:00] VITALS: BP 106/52
[2022-11-19] MEDS: BETHANECHOL CHLORIDE (25 MG) 25 MG TABLET PO SCH ×3 (08:16→16:47)
[2022-11-19] MEDS: PANTOPRAZOLE 40 MG VIAL IV SCH (08:16)
[2022-11-19] MEDS: SENNOSIDES 8.6 MG TABLET PO SCH (08:16)
[2022-11-19] MEDS: oxyCODONE IR immediate release 5 MG PO SCH ×2 (08:17→16:47)
[2022-11-19] MEDS: CEPHALEXIN MONOHYDRATE 250 MG CAPSULE PO SCH ×3 (08:19→16:47)
[2022-11-19] MEDS: ENSURE ENLIVE 237 ML LIQUID (VANILLA) PO SCH ×3 (08:19→16:48)
[2022-11-19] MEDS: LABETALOL HCL (100MG) 100 MG TABLET PO SCH (08:20)
[2022-11-19] MEDS: AMLODIPINE BESYLATE 5 MG TABLET PO SCH (08:20)
[2022-11-19] MEDS: LOSARTAN/HCTZ 50-12.5MG/ 1 EA TABLET PO SCH (08:21)
[2022-11-19 12:32] LABS: BAND % (MANUAL) 4 % (0.0-5.0); BASOPHILS % (MANUAL) 0 % (0.0-2.0); EOSINOPHILS % (MANUAL) 3 % (0-4); LYMPHOCYTES % (MANUAL) 16 % (16-48); MONOCYTES % (MANUAL) 19 % (0-11.0); NEUTROPHILS % (MANUAL) 58 (42-76)
[2022-11-19] MEDS ORDERED: MAGNESIUM CITRATE 296 ML BOTTLE PO ONE (13:30)
[2022-11-19] MEDS ORDERED: POLYETHYLENE GLYCOL 3350 17 GM POWD.PACK PO ONE (14:00)
[2022-11-19] MEDS ORDERED: SENN-175 PO (15:21)
[2022-11-19] MEDS ORDERED: DOCU100C36 PO (15:21)
[2022-11-19 16:00] VITALS: BP 107/49
--- NOTE | 2022-11-19 19:43 | NUR ---
steward/stewardess bath note Per MD, pt meets d/c criteria. Patient AOx4 able to express her concerns. Patient made aware of plan to return to facility, verbalized agreement. Nephrostomy right, left and Melendrez catheter in place. All safety precaution taken. Transport: [facility] unit#320, report given to Phillip at facility.
== END 2022-11-19 19:30 | DRG 689 ==
LOC: ER 17:30 → TELE 11-17 01:44
PROVIDERS: ADMIT Student in an Organized Health Care Education/Training Program; ATTEND Nurse Practitioner Acute Care
PROC: 30233N1 Transfusion of Nonautologous Red Blood Cells into Peripheral Vein, Percutaneous Approach (ICD-10-PCS; principal; 2022-11-17)
DX: N30.90 Cystitis, unspecified without hematuria (principal); N17.0 Acute kidney failure with tubular necrosis; D62 Acute posthemorrhagic anemia; E44.0 Moderate protein-calorie malnutrition; E87.1 Hypo-osmolality and hyponatremia; N13.6 Pyonephrosis; Z66 Do not resuscitate; N32.81 Overactive bladder; E78.5 Hyperlipidemia, unspecified; Z20.822 Contact with and (suspected) exposure to COVID-19; Z93.6 Other artificial openings of urinary tract status; N18.9 Chronic kidney disease, unspecified; I13.10 Hypertensive heart and chronic kidney disease without heart failure, with stage 1 through stage 4 chronic kidney disease, or unspecified chronic kidney disease; Z79.82 Long term (current) use of aspirin; Z79.899 Other long term (current) drug therapy; K59.00 Constipation, unspecified; Z87.448 Personal history of other diseases of urinary system; E88.09 Other disorders of plasma-protein metabolism, not elsewhere classified
CPT/HCPCS: 36415; 71045-TC; 76770-TC; 80048-TC; 80076-TC; 81001; 83735-TC; 84100-TC; 85025-TC; 85730-TC; 86850-TC; 87040-TC; 87081-TC; 87086-TC; C9113; C9803; G0378; J0696; J3475; J7030; J7040; J7060; P9016

== ENCOUNTER 2022-12-01 15:08 | Inpatient (IN) | payer MEDICARE, OTHER ==
[~2022-12-01] VITALS: Ht 162.6 cm; Wt 53.5 kg
[~2022-12-01 15:08] MED LIST changes: +DOCU100C36 PO; +SENN-175 PO
--- NOTE | 2022-12-01 15:25 | NUR ---
PT VENICE FROM SNF TO ER BED 06, SENT FOR ABNORMAL LOW HGB/HCT. PT IS AAOX4. VERBALLY RESPONSIVE, PLACED ON MONITOR. B/P ON LOW 90'S SYSTOLIC RESEARCH ENVIRONMENTAL SCIENTIST. AWAITING MD REYNA.
--- NOTE | 2022-12-01 15:28 | NUR ---
DR BUTLER AT BEDSIDE FOR EVAL
--- NOTE | 2022-12-01 15:42 | NUR ---
GRADES 7 8 TUTOR AT BEDSIDE FOR BLOOD DRAW.
[2022-12-01 15:59] LABS: BASOPHILS # (AUTO) 0.1 K/uL (0.0-0.2); BASOPHILS % (AUTO) 0.9 % (0.0-2.0); EOSINOPHILS % (AUTO) 1.2 % (0.0-6.0); LYMPHOCYTES # (AUTO) 2.1 K/uL (0.8-4.8); LYMPHOCYTES % (AUTO) 18.6 % (20.0-44.0); MEAN CORPUSCULAR HGB CONC 33 g/dl (31.0-36.0); MEAN CORPUSCULAR VOLUME 94 fL (82-100); MONOCYTES # (AUTO) 0.8 K/uL (0.1-1.30); MONOCYTES % (AUTO) 7.5 % (2.0-12.0); NEUTROPHILS % (AUTO) 71.8 % (43.0-81.0); PLATELET COUNT (AUTO) 143 K/uL (150-450); WHITE BLOOD COUNT (AUTO) 11.1 K/uL (4.3-11.0)
[2022-12-01] MEDS ORDERED: BISA10SU11 RC (16:10)
[2022-12-01] MEDS ORDERED: MAGN400O6 PO (16:10)
[2022-12-01] MEDS ORDERED: NA P133E RC (16:10)
[2022-12-01] MEDS ORDERED: CRAN400C PO (16:10)
[2022-12-01] MEDS ORDERED: DOCU-270 PO (16:10)
[2022-12-01 16:13] LABS: CALCIUM, SERUM 8.3 mg/dL (8.5-10.1); CARBON DIOXIDE 26 mmol/L (21-32); CHLORIDE 101 mmol/L (98-107); GLUCOSE 109 mg/dL (74-106); POTASSIUM 4.5 mmol/L (3.5-5.1); SODIUM SERUM 134 mmol/L (136-145); UREA NITROGEN, BLOOD 56 mg/dL (7-18)
--- NOTE | 2022-12-01 16:15 | NUR ---
IV LINE STARTED, MICHAEL 20G.
[2022-12-01 16:28] LABS: ALANINE AMINOTRANSFERASE 18 U/L (12-78); ALKALINE PHOSPHATASE 65 U/L (46-116); ASPARTATE AMINOTRANSFERASE 39 U/L (15-37); BILIRUBIN,TOTAL 0.3 mg/dL (0.2-1.0); TOTAL PROTEIN, SERUM 6.6 g/dL (6.4-8.2)
[2022-12-01 16:42] LABS: RED BLOOD CELL COUNT(AUTO) 1.93 MIL/uL (4.0-5.2)
[2022-12-01 16:48] LABS: HEMOGLOBIN 5.9 g/dL (11.5-14.8)
[2022-12-01 16:51] LABS: HEMATOCRIT 18 % (33-45)
--- NOTE | 2022-12-01 17:57 | NUR ---
URINE SPECIMEN COLLECTED SENT TO LAB.
[2022-12-01] MEDS ORDERED: Z GUARD REMEDY 4 OZ OINT TP PRN (18:00)
[2022-12-01] MEDS ORDERED: IV NS 0.9% 500 ML BAG IV ONE (18:00)
[2022-12-01] MEDS ORDERED: ONDANSETRON HCL/PF 4 MG/2 ML VIAL IVP PRN (18:00)
[2022-12-01] MEDS ORDERED: ACETAMINOPHEN 325 MG TABLET PO PRN (18:00)
[2022-12-01 19:29] LABS: BILIRUBIN,URINE NEGATIVE (NEGATIVE); COLOR,URINE YELLOW (YELLOW); LEUKOCYTE ESTERASE ,URINE 3+ (NEGATIVE); NITRITE, URINE POSITIVE (NEGATIVE); PROTEIN,URINE 2+ mg/dl (NEGATIVE); UGLUCOSE NEGATIVE (NEGATIVE); UROBILINOGEN,URINE 0.2 EU/dL (0.2)
[2022-12-01 19:33] LABS: BACTERIA,URINE 3+ /HPF (None Seen); RBC,URINE 21-50 /HPF (0-2); SQUAMOUS EPITHELIAL CELL,UR 0-2 /HPF (None Seen); WBC,URINE TOO NUMEROUS TO COUN /HPF (0-3)
[2022-12-01 19:42] LABS: BAND % (MANUAL) 2 % (0.0-5.0); EOSINOPHILS % (MANUAL) 2 % (0-4); LYMPHOCYTES % (MANUAL) 18 % (16-48); MONOCYTES % (MANUAL) 3 % (0-11.0); NEUTROPHILS % (MANUAL) 75 (42-76)
[2022-12-01] MEDS ORDERED: CEFTRIAXONE 1GM BAG (ER ONLY) 50 ML IV ONE (20:30)
--- NOTE | 2022-12-01 21:07 | NUR ---
REPORT GIVEN TO RALPH VALENCIA
--- NOTE | 2022-12-01 21:22 | NUR ---
RENTAL CLERK TOOL AND EQUIPMENT ADMITTING NOTES PT ARRIVED TO UNIT VIA GURNEY FROM ER. PT A/O X4, ORIENTED TO NAME, , PLACE, TIME. COOPERATIVE, ABLE TO MAKE NEEDS KNOWN. ABLE TO ANSWER ADMISSION QUESTIONS. VS: 119/66, 86 HR, 98.3 f, 100% O2. ON RA WITH NO S/S OF RESPIRATORY DISTRESS. DENIES PAIN AT THIS TIME. SKIN ASSESSMENT PERFORMED, INTACT. B/L NEPHROSTOMY TUBES WITH CLEAR, YELLOW DRAINAGE NOTED. MCDONALD CATHETER INTACT DRAINING CLEAR, YELLOW URINE. WAS INFORMED BY ER ABOUT CRITICAL LAB VALUE OF 5.9 HGB. WAITING ON BLOOD BANK TO READY BLOOD. PLACED ON TELE MONITOR READING SR 84. IV ACCESS MICHAEL #20G, PATENT AND INTACT. ORIENTED TO UNIT AND HOW TO USE CALL LIGHT. PATIENT COMFORTABLE. BELONGINGS DOCUMENTED. SAFETY PRECAUTIONS PUT IN PLACE: BED LOCKED AND IN LOWEST POSITION, SIDE RAILS UP X3, CALL LIGHT AND TRAY TABLE WITHIN REACH. WILL CONTINUE TO MONITOR AND ASSIST.
--- NOTE | 2022-12-01 21:46 | NUR ---
PATIENT TRANSFERRED TO [facility]
[2022-12-02] VITALS (16 sets, daily range): BP systolic 90–122; BP diastolic 42–85
--- NOTE | 2022-12-02 07:30 | NUR ---
PARKS AND RECREATION MANAGER ADMITTING NOTES PT IN BED RESTING AT THIS TIME. A/O X4, ABLE TO MAKE NEEDS KNOWN. STABLE ON RA WITH NO S/S OF RESPIRATORY DISTRESS. DENIES PAIN AT THIS TIME. B/L NEPHROSTOMY TUBES WITH CLEAR, YELLOW DRAINAGE NOTED: 1000 ML. MCDONALD CATHETER INTACT DRAINING CLEAR, YELLOW URINE: 200 ML. WAS INFORMED BY BLOOD BANK @ 0702 THAT BLOOD IS READY. WILL ENDORSE TO DAY SHIFT NURSE. ON TELE MONITOR READING SR 90. IV ACCESS MICHAEL #20G, PATENT AND INTACT. ALL CARE PROVIDED AND MEDS TOLERATED WELL. SAFETY PRECAUTIONS PUT IN PLACE: BED LOCKED AND IN LOWEST POSITION, SIDE RAILS UP X3, CALL LIGHT AND TRAY TABLE WITHIN REACH. WILL ENDORSE JEANETH TO DAY SHIFT NURSE. Addendum: 12/02/22 at 0812 by ANNIE STRONG RN EDIT: PARKS AND RECREATION MANAGER CLOSING NOTES
--- NOTE | 2022-12-02 07:50 | NUR ---
RN Note REceived patient in bed. GCS E4V1M4. weight trainer showed SR 108/min. Not in respiratory distress. Right UA midline is dry and intact, with 1/2NS running at 75mL/hr. Call delgado is placed within reach. Bed is locked and placed in the lowest position. ALl safety measures have been implemented. Will continue monitoring and care. Addendum: 12/02/22 at 0755 by PRESTON LOPEZ RN RN Note REceived patient in bed. GCS E4V5M6. weight trainer showed SR 108/min. Not in respiratory distress. Left AC IV site is dry and intact. Bilateral nephrostomy drain are in-situ, draining yellowish fluid. Melendrez is in-situ as well. Call delgado is placed within reach. Bed is locked and placed in the lowest position. ALl safety measures have been implemented. Will continue monitoring and care.
--- NOTE | 2022-12-02 08:11 | NUR ---
HOUSESMITH CLOSING NOTES
--- NOTE | 2022-12-02 08:12 | NUR ---
EDIT: DATA REVIEW SPECIALIST CLOSING NOTES
[2022-12-02] MEDS: PANTOPRAZOLE 40 MG VIAL IV SCH ×3 (09:00→17:51)
--- NOTE | 2022-12-02 10:13 | NUR ---
Pantoprazole administration IV pantoprazole is administered at 10:00 12/02/2022. As the dose yesterday was not given, the dose registered just now was for the dose yesterday.
[2022-12-02 14:40] LABS: BASOPHILS # (AUTO) 0.1 K/uL (0.0-0.2); MONOCYTES # (AUTO) 0.8 K/uL (0.1-1.30); NEUTROPHILS # (AUTO) 5.2 K/uL (1.8-8.9)
[2022-12-02 14:57] LABS: BASOPHILS % (AUTO) 0.8 % (0.0-2.0); EOSINOPHILS % (AUTO) 2.1 % (0.0-6.0); HEMATOCRIT 23 % (33-45); HEMOGLOBIN 7.5 g/dL (11.5-14.8); LYMPHOCYTES # (AUTO) 1.5 K/uL (0.8-4.8); LYMPHOCYTES % (AUTO) 19.2 % (20.0-44.0); MEAN CORPUSCULAR HGB CONC 33 g/dl (31.0-36.0); MEAN CORPUSCULAR VOLUME 91 fL (82-100); MONOCYTES % (AUTO) 10.1 % (2.0-12.0); NEUTROPHILS % (AUTO) 67.8 % (43.0-81.0); PLATELET COUNT (AUTO) 131 K/uL (150-450); RED BLOOD CELL COUNT(AUTO) 2.49 MIL/uL (4.0-5.2); WHITE BLOOD COUNT (AUTO) 7.7 K/uL (4.3-11.0)
[2022-12-02 14:58] LABS: ALANINE AMINOTRANSFERASE 16 U/L (12-78); ALBUMIN 2.8 g/dL (3.4-5.0); ALKALINE PHOSPHATASE 61 U/L (46-116); ASPARTATE AMINOTRANSFERASE 25 U/L (15-37); BILIRUBIN,TOTAL 0.7 mg/dL (0.2-1.0); CALCIUM, SERUM 8.3 mg/dL (8.5-10.1); CARBON DIOXIDE 25 mmol/L (21-32); CHLORIDE 106 mmol/L (98-107); CREATININE 1.7 mg/dL (0.6-1.3); GLUCOSE 160 mg/dL (74-106); MAGNESIUM 1.9 mg/dL (1.8-2.4); PHOSPHORUS 3.2 mg/dL (2.5-4.9); POTASSIUM 3.5 mmol/L (3.5-5.1); SODIUM SERUM 137 mmol/L (136-145); TOTAL PROTEIN, SERUM 5.9 g/dL (6.4-8.2); UREA NITROGEN, BLOOD 33 mg/dL (7-18)
--- NOTE | 2022-12-02 15:04 | NUR ---
RN note - blood transfusion During nurse handover, it was mentioned that one unit of PRBC was to be given. One unit of PRBC has been given. Double-confirm that two units of PRBC is to be given. Just placed another order for PRBC and contacted blood bank for another unit. Lab staff Cierra said that she would call us when the blood is ready.
[2022-12-02] MEDS: CEFTRIAXONE 1 G in IV D5W 50 ML IV SCH (15:09)
[2022-12-02] MEDS: IV NS 0.9% 1,000 ML IV SCH (15:10)
--- NOTE | 2022-12-02 17:44 | NUR ---
teletype installer note per dr Jacobsen ok to get egd consent
--- NOTE | 2022-12-02 18:36 | NUR ---
Consent for EGD and anesthesia have been obtained. Right nephrostomy tube collected 550mL and left nephrostomy tube collected 250mL.
--- NOTE | 2022-12-02 19:15 | NUR ---
HIGHWAY COMMISSIONER OPENING NOTE RECEIVED PT IN BED, ALERT AND ORIENTED X4. DENIES PAIN/DISCOMFORT AT THIS TIME. ON RA, O2 SATURATION 100%. BLOOD TRANSFUSION CURRENTLY IN PROGRESS ON R HAND/WRIST #18G, WELL GARY. NO S/S OF TRANSFUSION REACTION. NO S/SX OF INFX/INFILTARION ON IV ACCESS ON R HAND/WRIST. VS WNL. PT HAS BILATERAL NEPHROSTOMY TUBE, IN PLACED, PATENT AND SECURED, DRAINING YELLOWISH CLEAR FLUID. FC IN PLACED, DRAINING YELLOW URINE, SLIGHTLY CLOUDY. WILL CONT TO MONITOR PT CLOSELY.
--- NOTE | 2022-12-02 20:05 | NUR ---
NUCLEAR CRITICALITY SAFETY ENGINEER NOTE BLOOD TRANSFUSION ENDED. NO TRANSFUSION REACTION NOTED. VSS. WILL CONT TO MONITOR PT.
[2022-12-02 21:47] LABS: EOSINOPHILS % (MANUAL) 1 % (0-4); LYMPHOCYTES % (MANUAL) 22 % (16-48); MONOCYTES % (MANUAL) 9 % (0-11.0); NEUTROPHILS % (MANUAL) 68 (42-76)
[2022-12-03] VITALS: BP 133/62
[2022-12-03 04:00] VITALS: BP 121/67
[2022-12-03] MEDS: IV NS 0.9% 1,000 ML IV SCH ×2 (06:14→17:31)
[2022-12-03 06:22] LABS: BASOPHILS # (AUTO) 0.1 K/uL (0.0-0.2); BASOPHILS % (AUTO) 1.1 % (0.0-2.0); EOSINOPHILS % (AUTO) 2.9 % (0.0-6.0); HEMATOCRIT 28 % (33-45); HEMOGLOBIN 9.7 g/dL (11.5-14.8); LYMPHOCYTES # (AUTO) 1.6 K/uL (0.8-4.8); LYMPHOCYTES % (AUTO) 20.6 % (20.0-44.0); MEAN CORPUSCULAR HGB CONC 35 g/dl (31.0-36.0); MEAN CORPUSCULAR VOLUME 90 fL (82-100); MONOCYTES # (AUTO) 0.8 K/uL (0.1-1.30); MONOCYTES % (AUTO) 10.6 % (2.0-12.0); NEUTROPHILS # (AUTO) 5.1 K/uL (1.8-8.9); NEUTROPHILS % (AUTO) 64.8 % (43.0-81.0); PLATELET COUNT (AUTO) 151 K/uL (150-450); WHITE BLOOD COUNT (AUTO) 7.8 K/uL (4.3-11.0)
--- NOTE | 2022-12-03 06:42 | NUR ---
PRIVATE TUTOR CLOSING NOTE PRIVATE TUTOR OPENING NOTE PT COMFORTABLY RESTING IN BED, ALERT AND ORIENTED X4. DENIES PAIN/DISCOMFORT AT THIS TIME. ON RA, O2 SATURATION 100%. NO S/S OF DELAYED TRANSFUSION REACTION. NO S/SX OF INFX/INFILTRATION ON IV ACCESS ON R HAND/WRIST, CURRENTLY INFUSING NS @75ML/HR. VS WNL. PT HAS BILATERAL NEPHROSTOMY TUBE, IN PLACED, PATENT AND SECURED, DRAINING YELLOWISH CLEAR FLUID. FC IN PLACED, DRAINING CLEAR YELLOW URINE. ALL NEEDS ATTENDED. SAFETY PRECAUTIONS IMPLEMENTED AT ALL TIMES. PT KEPT NPO OVERNIGHT ORDERED. WILL ENDORSE TO AM SHIFT.
[2022-12-03 06:43] LABS: ALANINE AMINOTRANSFERASE 14 U/L (12-78); ALBUMIN 2.8 g/dL (3.4-5.0); ALKALINE PHOSPHATASE 61 U/L (46-116); ASPARTATE AMINOTRANSFERASE 24 U/L (15-37); BILIRUBIN,TOTAL 0.5 mg/dL (0.2-1.0); CALCIUM, SERUM 8.5 mg/dL (8.5-10.1); CARBON DIOXIDE 23 mmol/L (21-32); CHLORIDE 111 mmol/L (98-107); CREATININE 1.6 mg/dL (0.6-1.3); GLUCOSE 101 mg/dL (74-106); POTASSIUM 3.6 mmol/L (3.5-5.1); SODIUM SERUM 142 mmol/L (136-145); TOTAL PROTEIN, SERUM 6.1 g/dL (6.4-8.2); UREA NITROGEN, BLOOD 23 mg/dL (7-18)
--- NOTE | 2022-12-03 07:17 | NUR ---
RETURN TO FACTORY CLERK OPENING NOTES: RECEIVED PATIENT IN BED, ASLEEP BUT EASILY AROUSES TO VOICE AND TACTILE STIMULI. PATIENT IS ALERT, ORIENTED X 4, NO C/O PAIN OR DISCOMFORT NOTED AT THIS TIME. NO SOB, BREATHING EVEN AND UNLABORED. ON RA WITH OXYGEN SATURATION OF 100%. ON SR WITH HR OF 68 PER TELE MONITOR. PATIENT HAS IV FLUID OF NS RUNNING @ 75 ML/HR VIA RIGHT HAND, PATENT, NO S/S INFILTRATION NOTED. ALSO HAS SALINE LOCK ON LEFT HAND, PATENT AND FLUSHES WELL, NO S/S INFILTRATION ON THE SITE. BILATERAL NEPHROSTOMY INTACT AND DRAINING WITH YELLOW COLORED URINE, , MCDONALD CATHETER IN PLACE AND DRAINING VIA GRAVITY, NO HEMATURIA AND NO S/S INFILTRATION NOTED. ALL SAFETY MEASURES IN PLACE. BED LOCKED AND IN LOWEST POSITION REECE BED ALARM ON. SR UP X 2, HOB KEPT SLIGHTLY ELEVATED. CALL LIGHT WITHIN REACH. WILL CONTINUE TO MONITOR PATIENT THROUGHOUT SHIFT.
[2022-12-03 08:00] VITALS: BP 131/55
[2022-12-03] MEDS: PANTOPRAZOLE 40 MG VIAL IV SCH ×2 (08:56→16:41)
--- NOTE | 2022-12-03 09:34 | NUR ---
patient c/o large bruise in left ac,per pt. "they keep sticking me with needle to get blood in the morning",dr. golden notified and ordered midline for blood draw.
[2022-12-03 12:00] VITALS: BP 130/60
--- NOTE | 2022-12-03 12:25 | NUR ---
PATIENT WAS PICKED UP FOR HER EGD PROCEDURE AND LEFT VIA HOSPITAL BED. PATIENT LEFT IN NO ACUTE DISTRESS NOTED.
--- NOTE | 2022-12-03 13:34 | NUR ---
PATIENT CAME BACK AFTER HER EGD PROCEDURE IN NO ACUTE DISTRESS NOTED ACCOMPANIED BY NURSE RALPH WINTERS. V/S: BP 145/55, PULSE 80, RR, 20, TEMP 98.7, ON RA WITH OXYGEN SATURATION OF 99%.
[2022-12-03] MEDS: CEFTRIAXONE 1 G in IV D5W 50 ML IV SCH (14:03)
[2022-12-03 16:00] VITALS: BP 117/54
--- NOTE | 2022-12-03 18:52 | NUR ---
OPERATIONS LEADER CLOSING NOTES: PATIENT IN BED AWAKE ALERT, ORIENTED X 4, CONSUMING HER DINNER AT THIS TIME. ON SR ON TELE MONITOR WITH HR OF 90. NO RESPIRATORY DISTRESS NOTED THROUGHOUT SHIFT. NO C/O PAIN OR DISCOMFORT NOTED AT THIS TIME. PATIENT REMAINS STABLE THROUGHOUT SHIFT. MIDLINE ON RIGHT UPPER ARM INTACT AND INFUSING WITH NS @ 75 ML/HR, NO S/S INFILTRATION NOTED AT THIS TIME. EMPTIED YELLOW COLORED URINE ON LEFT NEPHROSTOMY = 350 ML AND RIGHT WAS 650, MCDONALD CATHETER WITH 300 ML. ALL NEEDS MET AND ANTICIPATED. ALL SAFETY MEASURES IN PLACE. BED LOCKED AND IN LOWEST POSITION WITH BED ALARM ON. WILL ENDORSE TO NEXT SHIFT NURSE FOR CONTINUITY OF CARE.
--- NOTE | 2022-12-03 19:56 | NUR ---
PRESTIDIGITATOR OPENING NOTES: RECEIVED PATIENT IN BED, AWAKE, ALERT, ORIENTED X 4, NO C/O PAIN OR DISCOMFORT NOTED AT THIS TIME. NO SOB, BREATHING EVEN AND UNLABORED. ON RA WITH OXYGEN SATURATION OF 100%. ON SR WITH HR OF 81 PER TELE MONITOR. PATIENT HAS IV FLUID OF NS RUNNING @ 75 ML/HR VIA RIGHT HAND, PATENT, NO S/S INFILTRATION NOTED. ALSO HAS SALINE LOCK ON RIGHT HAND, PATENT AND FLUSHES WELL, NO S/S INFILTRATION ON THE SITE. BILATERAL NEPHROSTOMY INTACT AND DRAINING WITH YELLOW COLORED URINE, MCDONALD CATHETER IN PLACE AND DRAINING VIA GRAVITY, NO HEMATURIA AND NO S/S INFILTRATION NOTED. ALL SAFETY MEASURES IN PLACE. BED LOCKED AND IN LOWEST POSITION REECE BED ALARM ON. SR UP X 2, HOB KEPT SLIGHTLY ELEVATED. CALL LIGHT WITHIN REACH. WILL CONTINUE TO MONITOR THROUGHOUT THE SHIFT.
[2022-12-03 20:00] VITALS: BP 129/56
[2022-12-04] VITALS: BP 126/54
[2022-12-04 04:00] VITALS: BP 136/57
[2022-12-04] MEDS: IV NS 0.9% 1,000 ML IV SCH (06:09)
--- NOTE | 2022-12-04 06:42 | NUR ---
BONUS CLERK OPENING NOTES: PATIENT IN BED, AWAKE, ALERT, ORIENTED X 4, ABLE TO MAKE NEEDS KNOWN, NO C/O PAIN OR DISCOMFORT NOTED AT THIS TIME. NO SOB, BREATHING EVEN AND UNLABORED. ON RA WITH OXYGEN SATURATION OF 100%. SR WITH HR OF 71 ON TELE MONITOR. PATIENT HAS IV FLUID OF NS RUNNING @ 75 ML/HR AT MICHAEL ML, NO S/S INFILTRATION NOTED. ALSO HAS SALINE LOCK ON RIGHT HAND, PATENT AND FLUSHES WELL, BILATERAL NEPHROSTOMY INTACT AND DRAINING WITH YELLOW COLORED URINE, MCDONALD CATHETER IN PLACE AND DRAINING VIA GRAVITY, NO HEMATURIA AND NO S/S INFILTRATION NOTED. ALL NEEDS ATTENDED, KEPT DRY AND CLEAN, ALL SAFETY MEASURES IN PLACE. BED LOCKED AND IN LOWEST POSITION TeamLINKS BED ALARM ON. CALL LIGHT WITHIN REACH. WILL ENDORSE TO AM SHIFT NURSE FOR CONTINUITY OF CARE. Addendum: 12/04/22 at 0645 by LIAM TILLMAN RN BONUS CLERK CLOSING NOTES
--- NOTE | 2022-12-04 06:45 | NUR ---
MEMBERSHIP COORDINATOR CLOSING NOTES: PATIENT IN BED, AWAKE, ALERT, ORIENTED X 4, ABLE TO MAKE NEEDS KNOWN, NO C/O PAIN OR DISCOMFORT NOTED AT THIS TIME. NO SOB, BREATHING EVEN AND UNLABORED. ON RA WITH OXYGEN SATURATION OF 100%. SR WITH HR OF 71 ON TELE MONITOR. PATIENT HAS IV FLUID OF NS RUNNING @ 75 ML/HR AT MICHAEL ML, NO S/S INFILTRATION NOTED. ALSO HAS SALINE LOCK ON RIGHT HAND, PATENT AND FLUSHES WELL, BILATERAL NEPHROSTOMY INTACT AND DRAINING WITH YELLOW COLORED URINE, MCDONALD CATHETER IN PLACE AND DRAINING VIA GRAVITY, NO HEMATURIA AND NO S/S INFILTRATION NOTED. ALL NEEDS ATTENDED, KEPT DRY AND CLEAN, ALL SAFETY MEASURES IN PLACE. BED LOCKED AND IN LOWEST POSITION REECE BED ALARM ON. CALL LIGHT WITHIN REACH. WILL ENDORSE TO AM SHIFT NURSE FOR CONTINUITY OF CARE.
--- NOTE | 2022-12-04 07:35 | NUR ---
LOG CUTTER OPENING NOTES: PATIENT IN BED, AWAKE, ALERT, ORIENTED X 4, ABLE TO MAKE NEEDS KNOWN, NO C/O PAIN OR DISCOMFORT NOTED AT THIS TIME. NO SOB, BREATHING EVEN AND UNLABORED. ON RA, TOLERATING WELL, NO SOB NOTED. SR WITH HR OF 72 ON TELE MONITOR. PATIENT HAS IV FLUID OF NS RUNNING @ 75 ML/HR AT MICHAEL ML, NO S/S INFILTRATION NOTED. ALSO HAS SALINE LOCK ON RIGHT HAND, PATENT AND FLUSHES WELL, BILATERAL NEPHROSTOMY INTACT AND DRAINING WITH YELLOW COLORED URINE, MCDONALD CATHETER IN PLACE AND DRAINING VIA GRAVITY, NO HEMATURIA AND NO S/S INFILTRATION NOTED. ALL NEEDS ATTENDED, KEPT DRY AND CLEAN, ALL SAFETY MEASURES IN PLACE. BED LOCKED AND IN LOWEST POSITION REECE BED ALARM ON. CALL LIGHT WITHIN REACH. PLAN OF CARE CONTINUE.
[2022-12-04 08:00] VITALS: BP 130/52
[2022-12-04] MEDS: PANTOPRAZOLE 40 MG VIAL IV SCH (08:22)
--- NOTE | 2022-12-04 10:25 | NUR ---
PATIENT STATED SHE DID NOT HAVE BM FOR 4-5 DAYS, DR. DURHAM NOTIFIED, WITH NEW ORDER NOTED AND CARRIED OUT. PLAN OF CARE CONTINUE.
[2022-12-04] MEDS ORDERED: POLYETHYLENE GLYCOL 3350 17 GM POWD.PACK PO ONE (10:30)
--- NOTE | 2022-12-04 11:28 | NUR ---
COVID TEST DONE AND SENT TO THE LAB, PLAN OF CARE CONTINUE.
[2022-12-04] MEDS: CEFTRIAXONE 1 G in IV D5W 50 ML IV SCH (13:08)
--- NOTE | 2022-12-04 13:10 | NUR ---
CALLED [facility] AND SPOKE TO COLLETTE ROSAS AND GAVE REPORT.
--- NOTE | 2022-12-04 14:06 | NUR ---
PATIENT DISCHARGE VIA GURNEY WITH 3 EMT'S ON STABLE CONDITION, RELEASED ALL DISCHARGED PAPERWORKS AND PERSONAL BELONGINGS TO THE PATIENT. PATIENT SIGNED ALL DISCHARGED PAPER WORKS AND BELONGINGS.
== END 2022-12-04 14:15 | DRG 377 ==
LOC: ER 15:14 → TELE1 21:01
PROVIDERS: ADMIT Internal Medicine; ATTEND Internal Medicine
PROC: 30233N1 Transfusion of Nonautologous Red Blood Cells into Peripheral Vein, Percutaneous Approach (ICD-10-PCS; 2022-12-01)
PROC: 0DB68ZX Excision of Stomach, Via Natural or Artificial Opening Endoscopic, Diagnostic (ICD-10-PCS; principal; 2022-12-03)
PROC: 05H933Z Insertion of Infusion Device into Right Brachial Vein, Percutaneous Approach (ICD-10-PCS; 2022-12-03)
DX: K29.71 Gastritis, unspecified, with bleeding (principal); N17.0 Acute kidney failure with tubular necrosis; E87.1 Hypo-osmolality and hyponatremia; I10 Essential (primary) hypertension; Z20.822 Contact with and (suspected) exposure to COVID-19; K20.90 Esophagitis, unspecified without bleeding; K25.9 Gastric ulcer, unspecified as acute or chronic, without hemorrhage or perforation; E78.00 Pure hypercholesterolemia, unspecified; E78.5 Hyperlipidemia, unspecified; Z79.82 Long term (current) use of aspirin; Z79.899 Other long term (current) drug therapy; I12.9 Hypertensive chronic kidney disease with stage 1 through stage 4 chronic kidney disease, or unspecified chronic kidney disease; N18.9 Chronic kidney disease, unspecified; Z87.448 Personal history of other diseases of urinary system; N32.81 Overactive bladder; M10.9 Gout, unspecified; D63.8 Anemia in other chronic diseases classified elsewhere; K59.00 Constipation, unspecified
CPT/HCPCS: 36410; 36415; 71045-TC; 80053-TC; 81001; 83735-TC; 84100-TC; 85025-TC; 85610-TC; 85730-TC; 86850-TC; 87086-TC; 88305-TC; 88313-TC; 88342; C9113; C9803; G0378; J0696; J2704; J7030; J7040; J7050; J7060; P9016

== ENCOUNTER 2022-12-27 13:22 | Outpatient (CLI) | payer MEDICARE, OTHER ==
[~2022-12-27 13:22] MED LIST changes: +BISA10SU11 RC; -CEPH250C PO; +CRAN400C PO; +DOCU-270 PO; -DOCU100C36 PO; +MAGN400O6 PO; +NA P133E RC
== END 2022-12-27 23:59 | disposition home or self-care (01) ==
LOC: NM 13:22
PROVIDERS: ATTEND Nurse Practitioner Acute Care
DX: Z46.6 Encounter for fitting and adjustment of urinary device (principal); R31.9 Hematuria, unspecified; R94.4 Abnormal results of kidney function studies; R10.9 Unspecified abdominal pain
CPT/HCPCS: 78707; A9562